=== PATIENT | female | born 1945 | race Caucasian/White ===

== ENCOUNTER 2019-10-12 10:28 | Outpatient (CLI) | payer MEDICARE, SELFPAY ==
--- NOTE | ~2019-10-12 | MM_ITS ---
EXAMINATION: MM screening ryan BI w yrn HISTORY: Screening TECHNIQUE: Craniocaudal and mediolateral oblique 3-D tomosynthesis images were obtained and synthetic 2-D images were generated. CAD analysis was submitted and interpreted. COMPARISON: Comparison to multiple prior studies sequentially, with oldest reviewed study dated 03/2014. BREAST PARENCHYMAL COMPOSITION: There are scattered areas of fibroglandular density. FINDINGS: There is no evidence of suspicious mass, calcification, or architectural distortion to sugg est malignancy in either breast. There has been no suspicious interval change. IMPRESSION: 1. No mammographic evidence of malignancy. 2. Recommend routine screening mammography in one year. BI-RADS Category 1: Negative Reviewed, dictated and finalized at location A.
== END 2019-10-12 10:29 | disposition home or self-care (01) ==
PROVIDERS: PCP Family Medicine; Visit Provider Family Medicine
DX: Z12.31 Encounter for screening mammogram for malignant neoplasm of breast (principal)
CPT/HCPCS: 77063; 77067

== ENCOUNTER 2020-09-04 10:34 | Outpatient (CLI) | payer MEDICARE, SELFPAY ==
--- NOTE | ~2020-09-04 | XR_ITS ---
EXAMINATION: XR wrist LT w scaphoid DATE: 09/04/2020 11:00 INDICATION: Radial sided left hand/wrist pain. TECHNIQUE: Posteroanterior, ulnar deviation, oblique, and lateral views of the left wrist were obtain ed. COMPARISON: none FINDINGS: Alignment is normal. No fracture. Subarticular lucencies with thin sclerotic margins likely represent ing degenerative subchondral cysts are seen at both sides of the first carpal metacarpal joint where there is wall to moderate joint space narrowing and at both sides of the radiolunate articulation wit h the joint space is relatively preserved. Additional mild joint space narrowing at the triscaphe patti nt. Remaining joint spaces are normal. Soft tissues are unremarkable. IMPRESSION: 1. 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 Reviewed, dictated and finalized at location A. IMPRESSION: 1. 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
== END 2020-09-04 10:35 | disposition home or self-care (01) ==
PROVIDERS: PCP Family Medicine; Visit Provider Physician Assistant
DX: M79.642 Pain in left hand (principal); M79.645 Pain in left finger(s); M19.042 Primary osteoarthritis, left hand
CPT/HCPCS: 73110

== ENCOUNTER 2020-09-07 00:37 | Day surgery (SDC) | payer MEDICARE, SELFPAY ==
[2020-08-31 11:05] VITALS: BMI 33.3
[2020-09-07 10:33] VITALS: BP 138/59; PULSE 74; RESP 18; TEMP 36.3; O2SAT 97; BMI 31.4
[2020-09-07] MEDS: LACTATED RINGERS 1,000 ML 30 ML IV CONT (10:47)
--- NOTE | 2020-09-07 10:49 | WPDANESEPPF ---
Anes - Initial Pre Proc Eval Procedure: Operation Date: 09/07/20 10:30 Proposed Procedures p Screening Colonoscopy - Orlin Vitale MD Date/Time: 09/07/20 10:49 Surgeon: Orlin Vitale MD Pre Op Diagnosis: hx of colon polyps Patient Data Age: 75 Gender: F Height: 1.55 m Weight: 75.5 kg Last Vital Signs Temp 36.3 C L 09/07/20 10:33 Pulse 74 09/07/20 10:33 Resp 18 09/07/20 10:33 BP 138/59 L 09/07/20 10:33 Pulse Ox 97 09/07/20 10:33 Allergies Allergy/AdvReac Type Severity Reaction Status Date / Time AMIE Inhibitors AdvReac Unknown Unknown Verified 09/07/20 10:18 fenofibrate AdvReac Unknown myalgia Verified 09/07/20 10:18 Bdccnis-Pds-Afw Reductase AdvReac Unknown Unknown Verified 09/07/20 10:18 Inhibitor Home Medications Medication Instructions Recorded Confirmed Type psyllium husk 0.52 gram capsule 0.52 gm PO BID cap 01/25/19 09/07/20 History turmeric root extract 500 mg 500 mg PO DAILY 01/25/19 09/07/20 History capsule ascorbic acid (vitamin C) 1,000 mg 1 g PO DAILY 01/24/20 09/07/20 History tablet cholecalciferol (vitamin D3) 25 25 mcg PO TID cap 08/28/20 09/07/20 History mcg (1,000 unit) capsule famotidine 20 mg tablet 20 mg PO QHS 08/28/20 09/07/20 History omega-3 fatty acids 1,000 mg 1,000 mg PO DAILY 08/28/20 09/07/20 History capsule Patient hx anesthesia problems: none Family hx anesthesia problems: none PMFSH Past Medical History Medical History Borderline diabetes mellitus Complex sleep apnea syndrome History of tobacco abuse Hyperlipidemia Hypertension Family History Family History Father Family history of malignant neoplasm of stomach Patient's father is Family history of throat cancer Mother Family history of lung cancer Patient's mother is Family history of malignant neoplasm of brain Sibling Diabetes mellitus Family history of blood dyscrasia Other Family history of alcoholism Social History Social History Social History: Smoking packs per day: 1 Smoking cigarettes per day: 20.0 Years smoked: 20 Smoking pack-years: 20.00 Smoking status: Former smoker Tobacco type: cigarettes Second hand tobacco smoke exposure: No Smoking end date: 02/10/99 Alcohol intake: never Substance use: never Substance use type: does not use Living arrangements: with family Gender identity (if verbalized by the patient): Female Spiritual care concerns: No Anes - Eval Final PreProcedure Day of Procedure 09/07/20 10:49 Patient weight: obese Heart: regular rate and rhythm Lungs: clear to auscultation Airway: Mallampati scale class II Neurological: alert and oriented Last oral intake: >/= 8 hours ASA classification: III Emergent: no Anesthetic plan: proceed Anesthesia type and monitoring: general GIVS and standard monitoring Informed Consent: The patient's anesthetic plan and its attendant risks and benefits were discussed with the patient/family/POA. Questions were solicited and answers provided to the satisfaction of the patient/family/POA.
[2020-09-07 11:36] VITALS: BP 105/51; PULSE 72; RESP 18; O2SAT 93
[2020-09-07 11:46] VITALS: BP 121/66; PULSE 68; RESP 19; O2SAT 97
[2020-09-07 11:56] VITALS: BP 121/60; PULSE 66; RESP 14; O2SAT 95
--- NOTE | 2020-09-12 16:20 | P.HP_ITS ---
History of Present Illness History of Present Illness Consent: Risks, benefits, and alternatives have been discussed and questions answered. Patient agrees to proceed with procedure. Chief complaint: hx of colon polyps Narrative: Marychuy Spain is a 75 year old female who has a history of colon polyps. She is here for colon cancer screening Review of Systems Review of Systems: All systems reviewed & are unremarkable except as noted in HPI and below PMFSH Past Medical History Medical History Borderline diabetes mellitus Complex sleep apnea syndrome History of tobacco abuse Hyperlipidemia Hypertension Family History Family History Father Family history of malignant neoplasm of stomach Patient's father is Family history of throat cancer Mother Family history of lung cancer Patient's mother is Family history of malignant neoplasm of brain Sibling Diabetes mellitus Family history of blood dyscrasia Other Family history of alcoholism Social History Social History Social History: Smoking packs per day: 1 Smoking cigarettes per day: 20.0 Years smoked: 20 Smoking pack-years: 20.00 Smoking status: Former smoker Tobacco type: cigarettes Second hand tobacco smoke exposure: No Smoking end date: 02/10/99 Alcohol intake: never Substance use: never Substance use type: does not use Living arrangements: with family Gender identity (if verbalized by the patient): Female Spiritual care concerns: No Meds Home Medications and Allergies Home Medications Medication Instructions Recorded Confirmed Type psyllium husk 0.52 gram capsule 0.52 gm PO BID cap 01/25/19 09/07/20 History turmeric root extract 500 mg 500 mg PO DAILY 01/25/19 09/07/20 History capsule ascorbic acid (vitamin C) 1,000 mg 1 g PO DAILY 01/24/20 09/07/20 History tablet cholecalciferol (vitamin D3) 25 25 mcg PO TID cap 08/28/20 09/07/20 History mcg (1,000 unit) capsule famotidine 20 mg tablet 20 mg PO QHS 08/28/20 09/07/20 History omega-3 fatty acids 1,000 mg 1,000 mg PO DAILY 08/28/20 09/07/20 History capsule Allergies Allergy/AdvReac Type Severity Reaction Status Date / Time AMIE Inhibitors AdvReac Unknown Unknown Verified 09/07/20 10:18 fenofibrate AdvReac Unknown myalgia Verified 09/07/20 10:18 Zryxjcn-Zlz-Ydb Reductase AdvReac Unknown Unknown Verified 09/07/20 10:18 Inhibitor Exam Resp: Auscultation: clear to auscultation bilaterally Cardio: Rate: regular rate Rhythm: regular rhythm GI: GI Palp: Yes Soft to palpation and No Tenderness to palpation present (GI) Assessment and Plan Assessment and plan (1) Colon cancer screening: Code(s): Z12.11 - Encounter for screening for malignant neoplasm of colon Status: Acute Assessment and Plan: Colonoscopy with possible biopsy or polypectomy or cautery or injection of dawn bstances.
== END 2020-09-07 12:05 | disposition home or self-care (01) ==
PROVIDERS: PCP Family Medicine; Visit Provider Internal Medicine Gastroenterology
PROC: 0DJD8ZZ Inspection of Lower Intestinal Tract, Via Natural or Artificial Opening Endoscopic (ICD-10-PCS; CPT 45378; principal; 2020-09-07 10:30)
DX: Z12.11 Encounter for screening for malignant neoplasm of colon (principal); K57.30 Diverticulosis of large intestine without perforation or abscess without bleeding; K64.8 Other hemorrhoids; K62.1 Rectal polyp; R73.03 Prediabetes; G47.39 Other sleep apnea; I10 Essential (primary) hypertension; E78.5 Hyperlipidemia, unspecified; Z87.891 Personal history of nicotine dependence; E66.9 Obesity, unspecified; Z68.31 Body mass index [BMI] 31.0-31.9, adult
CPT/HCPCS: 45380; 88305; J7120

== ENCOUNTER 2020-10-17 09:29 | Outpatient (CLI) | payer MEDICARE, SELFPAY ==
--- NOTE | ~2020-10-17 | MM_ITS ---
EXAMINATION: MM screening ryan BI w yrn HISTORY: Screening mammogram TECHNIQUE: Craniocaudal and mediolateral oblique 3-D tomosynthesis images were obtained and synthetic 2-D images were generated. CAD analysis was submitted and interpreted. COMPARISON: 10/12/2019, 09/18/2018, 08/20/2017 bilateral digital screening mammogram examinations BREAST PARENCHYMAL COMPOSITION: There are scattered areas of fibroglandular density. FINDINGS: There is a biopsy marker on the left; history of prior benign left breast biopsy. There are scattered bilateral benign calcifications. There is no evidence of suspicious mass, calcification, o r architectural distortion to suggest malignancy in either breast. There has been no suspicious inter haily change. IMPRESSION: 1. No mammographic evidence of malignancy. 2. Recommend routine screening mammography in one year. BI-RADS Category 2: Benign finding(s). Reviewed, dictated and finalized at location A.
--- NOTE | ~2020-10-17 | DEXA_ITS ---
Bone Density Report Name: Marychuy Spain Age: 75 Sex: Female Ethnicity: White Date of : 1945 Indication: postmenopausal; hysterectomy; Referring Provider: Jennifer Gomez Study: Bone densitometry was performed. Exam Date: October 17, 2020 Accession number: [id number] Bone Density: Region BMD T-score Z-score Classification AP Spine (L1, L2, L3) 0.839 -1.6 0.7 Osteopenia Femoral Neck (Left) 0.949 0.9 2.9 Normal Total Hip (Left) 1.096 1.3 3.0 Normal Total Hip Bilateral Avg 1.044 0.9 2.5 Normal Femoral Neck (Right) 0.784 -0.6 1.5 Normal Total Hip (Right) 0.991 0.4 2.1 Normal World Health Organization criteria for BMD impression classify patients as: Normal (T-score at or above -1.0), Osteopenia (T-score between -1.0 and -2.5), or Osteoporosis (T-score at or below -2.5). 10-year Fracture Risk(1): Major Osteoporotic Fracture 8.2% Hip Fracture 0.9% Reported Risk Factors: [place] (), Neck BMD=0.784, BMI=32.9 (1) FRAX(R) Version 3.08. Fracture probability calculated for an untreated patient. Fracture probability may be lower if the patient has received treatment. Clinical Information Provided by Patient: Has used the following medications: Vitamin D Has the following medical conditions: Hysterectomy Patient maximum height was 61 Menopause Age: 51 Drinks caffeinated beverages Onset of menses at age 15 Number of children 1 Impression: The patient has low bone mass, based on the Total Spine T-score. The patient has an estimated ten-year risk of hip fracture of 0.9% and an estimated ten-year risk of major fracture of 8.2%, based on the WHO FRAX algorithm. Discussion: BONE DENSITY IS LOW AT ONE OR MORE SKELETAL SITES. This patient's lowest T-score is low at one or more skeletal sites. It meets the World Health Organization's (WHO) criteria for ?low bone mass? (T-score between -1.0 and -2.5). The patient's 10-year risk of fracture as calculated by FRAX is less than the threshold where pharmacological therapy is recommended by the National Osteoporosis Foundation (NOF). However, all treatment decisions require clinical judgment and consideration of individual patient factors, including patient preferences, comorbidities, previous drug use, risk factors not captured in the FRAX model (e.g., frailty, falls, vitamin D deficiency, increased bone turnover, interval significant decline in bone density) and possible under or overestimation of fracture risk by FRAX. The patient should follow a healthful lifestyle (good nutrition with adequate calcium and vitamin D, and appropriate weight-bearing exercise). Follow-Up: Consider repeating this study in 2 to 3 years to reassess this patient's status, or sooner if there is some new clinical indication. Reported by: HERNAN on 10/17/2020 11:28:00 AM
== END 2020-10-17 09:30 | disposition home or self-care (01) ==
PROVIDERS: PCP Family Medicine; Visit Provider Obstetrics & Gynecology
DX: Z12.31 Encounter for screening mammogram for malignant neoplasm of breast (principal); Z78.0 Asymptomatic menopausal state
CPT/HCPCS: 77063; 77067; 77080

== ENCOUNTER → 2020-12-08 02:41 | Outpatient (CLI) | payer MEDICARE, SELFPAY ==
[2020-12-08 17:01] LABS: SARS-CoV-2 RNA PCR Negative
== END ==
PROVIDERS: Physician Assistant; PCP Family Medicine; Visit Provider Family Medicine
DX: R68.89 Other general symptoms and signs (principal); Z20.822 Contact with and (suspected) exposure to COVID-19
CPT/HCPCS: C9803; U0003; U0005

== ENCOUNTER 2021-01-27 13:39 | Emergency (ER) | payer MEDICARE, SELFPAY ==
[2021-01-27] VITALS (7 sets, daily range): BP systolic 159–187; BP diastolic 72–90; PULSE 73–87; RESP 12–18; TEMP 36.3; O2SAT 97–100
--- NOTE | ~2021-01-27 | XR_ITS ---
EXAMINATION: XR chest 2V 01/27/2021 20:14 INDICATION: Shortness of breath. Diabetes. PROCEDURE: 2 view chest COMPARISON: 07/12/2013 FINDINGS: The lungs are clear. The cardiomediastinal silhouette is within normal limits. There are no pleural effusions. There is no pneumothorax suspected. IMPRESSION: 1: NO ACUTE CARDIOPULMONARY DISEASE. Reviewed, dictated and finalized at location A. E ANIMAL VETERINARIAN
--- NOTE | 2021-01-27 19:49 | PC.NURSE ---
Pt presents with ems c/o anxiety and shortness of breath x 9 days. sats 100% on RA. appears anxious. c/o I can't take a deep breath . resps normal, regular, even, nonlabored. lungs clear to auscultation.skin pwd.
--- NOTE | 2021-01-27 20:06 | ED.GENADULT ---
HPI - General Adult General Chief complaint: Shortness of Breath/Dyspnea Stated complaint: SOB Time Seen by Provider: 01/27/21 19:34 History of Present Illness HPI narrative: 75-year-old female presents the [facility] for evaluation of persistent shortness of breath and anxiety. Patient has had multiple evaluations by both her revolving inventory clerk and her primary care physician over the last few days regarding anxiety and blood pressure. Patient was started on Norvasc by her revolving inventory clerk but patient took the medication 1 time and stopped taking it due to adverse effects dizziness and lightheadedness. Patient did have follow-up with her primary care physician and was started on Buspirone and took the medication once. Related Data Home Medications Medication Instructions Recorded Confirmed psyllium husk 0.52 gram capsule 0.52 gm PO BID cap 01/25/19 01/22/21 turmeric root extract 500 mg 500 mg PO DAILY 01/25/19 01/22/21 capsule ascorbic acid (vitamin C) 1,000 mg 1 g PO DAILY 01/24/20 01/22/21 tablet cholecalciferol (vitamin D3) 25 25 mcg PO TID cap 08/28/20 01/22/21 mcg (1,000 unit) capsule famotidine 20 mg tablet 20 mg PO QHS 08/28/20 01/22/21 omega-3 fatty acids 1,000 mg 1,000 mg PO DAILY 08/28/20 01/22/21 capsule calcium carbonate 600 mg-vitamin cap PO 11/28/20 01/22/21 D3 12.5 mcg (500 unit) capsule Allergies Allergy/AdvReac Type Severity Reaction Status Date / Time AMIE Inhibitors AdvReac Unknown Unknown Verified 01/26/21 13:12 fenofibrate AdvReac Unknown myalgia Verified 01/26/21 13:12 Ixitedb-NJD-HgS Reductase AdvReac Unknown Unknown Verified 01/26/21 13:12 Inhibitor [Vzcejtb-Dph-Qzh Reductase Inhibitor] Review of Systems Review of Systems: CONSTITUTIONAL: Denies fever, chills, or sweats. EYES: Denies visual changes, redness, or discharge. ENT: Denies rhinorrhea, congestion, sore throat, or otalgia. CARDIOVASCULAR: Denies chest pain, palpitations, or edema. RESPIRATORY: Denies cough or dyspnea. GASTROINTESTINAL: Denies abdominal pain, nausea, vomiting, or diarrhea. GENITOURINARY: Denies dysuria or hematuria. SKIN: Denies rash or itching. MUSCULOSKELETAL: Denies back pain, joint pain, or myalgia. NEUROLOGIC: Denies headache, numbness, or weakness. PSYCHIATRIC: anxiety PMFSH Past Medical History Medical History Borderline diabetes mellitus Complex sleep apnea syndrome History of tobacco abuse Hyperlipidemia Hypertension Family History Family History Father Family history of malignant neoplasm of stomach Patient's father is Family history of throat cancer Mother Family history of lung cancer Patient's mother is Family history of malignant neoplasm of brain Sibling Diabetes mellitus Family history of blood dyscrasia Other Family history of alcoholism Social History Social History (Updated 01/26/21 @ 13:13 by Yany Frost) Social History: Smoking packs per day: 1 Smoking cigarettes per day: 20.0 Years smoked: 20 Smoking pack-years: 20.00 Smoking status: Former smoker Tobacco type: cigarettes Second hand tobacco smoke exposure: No Smoking end date: 02/10/99 Alcohol intake: never Substance use: never Substance use type: does not use Additional living arrangements comments: Pt son and granddaughter live with her. Gender identity (if verbalized by the patient): Female Sexual Orientation (if Verbalized by the Patient): Straight or Heterosexual Spiritual care concerns: No Exam Narrative: APPEARANCE: Well appearing, no pain in distress, well-nourished. Head normocephalic atraumatic. EYES: PERRLA/EOMI, conjunctivae very clear. NECK: Supple. No adenopathy, no masses. RESPIRATORY: Airway patent, respirations nonlabored. Clear to auscultation bilaterally, no rales, rhonchi, wheezing. CARDIOVASCUL
[2021-01-29 19:40] LABS: SARS-CoV-2 RNA PCR Negative
== END 2021-01-27 21:20 | disposition home or self-care (01) ==
PROVIDERS: Emergency Provider Emergency Medicine; PCP Family Medicine
DX: R06.00 Dyspnea, unspecified (principal); Z20.822 Contact with and (suspected) exposure to COVID-19; R73.03 Prediabetes; G47.39 Other sleep apnea; E78.5 Hyperlipidemia, unspecified; I10 Essential (primary) hypertension; Z87.891 Personal history of nicotine dependence
CPT/HCPCS: 71046; 99283; C9803; U0003; U0005

== ENCOUNTER 2021-02-04 12:17 | Outpatient (CLI) | payer MEDICARE, SELFPAY ==
--- NOTE | ~2021-02-04 | MR_ITS ---
EXAMINATION: MR brain/brain stem wo con DATE: 02/04/2021 13:47 INDICATION: Disorientation, unspecified. Confusion. Left eye pain. TECHNIQUE: Magnetic resonance imaging (MRI) of the brain and brainstem was performed without intraven ous contrast. Sequences included sagittal and axial T1-weighted FSE, axial diffusion-weighted FS EPI, axial T2*-weighted GRE, axial T2-weighted FLAIR Propeller, axial T2-weighted Propeller, small field- of-view coronal FIESTA, small sahgp-gb-berl coronal T1-weighted FSE, and small figwy-oj-olcp axial T1 -weighted SPGR. Apparent diffusion coefficient (ADC) maps were created. COMPARISON: None. FINDINGS: There is no intracranial hemorrhage, acute infarction, or abnormal intracranial mass lesion . There are scattered areas of nonspecific increased T2-weighted signal intensity in the cerebral whi te matter, which is within normal limits for the patient's age. The ventricles are normal in size. Th e internal auditory canals and inner and middle ears are normal. The mastoid air cells are normal. Th e cisternal segments of the trigeminal nerves are normal. There is a mucous retention cyst in left ma xillary sinus. There are likely changes of ocular lens replacement surgeries. IMPRESSION: 1. Normal aging brain. Reviewed, dictated and finalized at location A. APPLICATION SUPPORT ANALYST IMPRESSION: 1. Normal aging brain.
== END 2021-02-04 12:18 | disposition home or self-care (01) ==
LOC: ANHIMG 12:23
PROVIDERS: PCP Family Medicine; Visit Provider Nurse Practitioner Gerontology
DX: R41.0 Disorientation, unspecified (principal)
CPT/HCPCS: 70551

== ENCOUNTER 2021-02-07 13:18 | Outpatient (CLI) | payer MEDICARE, SELFPAY ==
--- NOTE | 2021-02-07 13:52 | ECHO_ITS ---
Patient Info Name: Marychuy Spain Age: 75 years : 1945 Gender: Female Ht: 61 in Wt: 175 lbs BSA: 1.88 m2 HR: 63 bpm BP: 128 / 67 mmHg Technical Quality: Good Exam Date: 02/07/2021 2:03 PM Exam Location: [facility] Patient Status: Outpatient Admit Date: 02/07/2021 Staff Ordering Physician: Ranjith Adler DO Manager Medical Device: Radha qOuendo RDCS Attending Provider: Ranjith Adler DO Referring Physician: Vitor ADAMS; Exam Type: CA echo doppler color flow Study Info Indications R06.00 - Dyspnea, unspecified Complete two-dimensional, color flow and Doppler transthoracic echocardiogram is performed. Summary 1. Complete two-dimensional, color flow and Doppler transthoracic echocardiogram is performed. 2. Left ventricular chamber dimension is normal. 3. Left ventricular systolic function is normal, estimated at 60-65%. 4. The left ventricular diastolic function is grade II diastolic dysfunction. 5. E/e' 14 is mildly elevated. 6. There is trace aortic valve regurgitation. 7. No pulmonary hypertension, estimated pulmonary arterial systolic pressure is 28 mmHg. Left Ventricle E/e' 14 is mildly elevated. Left ventricular chamber dimension is normal. Left ventricular systolic function is normal, estimated at 60-65%. The left ventricular diastolic function is grade II diastolic dysfunction. Right Ventricle Right ventricular chamber dimension is normal. Right ventricular systolic function is normal. Aortic Valve The aortic valve is trileaflet. There is no aortic valve stenosis. There is trace aortic valve regurgitation. Pulmonic Valve There is no pulmonic regurgitation. Mitral Valve There is no mitral valve stenosis. There is no mitral valve regurgitation. Tricuspid Valve There is no tricuspid valve regurgitation. No pulmonary hypertension, estimated pulmonary arterial systolic pressure is 28 mmHg. Pericardium/Pleural There is no pericardial effusion. Inferior Vena Cava Normal inferior vena cava with >50% collapse upon inspiration consistent with normal right atrial pressure, 5 mmHg. Aorta The aortic root size at the sinus of Valsalva is normal. Left Ventricular Outflow Tract Name Value Normal LVOT 2D LVOT Diameter 2.0 cm LVOT Doppler LVOT Peak Gradient 5 mmHg LVOT Mean Gradient 3 mmHg LVOT VTI 24 cm LVOT VTI/AV VTI Ratio 1.0 LVOT Stroke Volume 77 ml LVOT CO 14.6 l/min LVOT CI 7.7 l/min/m2 Pulmonic Valve Name Value Normal PV Doppler PV Peak Gradient 2 mmHg Mitral Valve Name Value No
== END 2021-02-07 13:19 | disposition home or self-care (01) ==
PROVIDERS: PCP Family Medicine; Visit Provider Internal Medicine Cardiovascular Disease
DX: R06.00 Dyspnea, unspecified (principal)
CPT/HCPCS: C8929

== ENCOUNTER 2021-10-03 14:34 | Outpatient (CLI) | payer MEDICARE, SELFPAY ==
--- NOTE | ~2021-10-03 | XR_ITS ---
EXAM: XR hip LT min 2V DATE: 10/03/2021 14:59 HISTORY: PAIN X2-4 WKS, NO INJURY . COMPARISON: 07/27/2012. FINDINGS: Normal mineralization. No fracture or dislocation. No lytic or blastic lesion. Superior le ft hip joint space narrowing. No erosion or periosteal change. Soft tissues within normal limits. IMPRESSION: Mild left hip osteoarthritis. Reviewed, dictated and finalized at location K.
== END 2021-10-03 14:35 | disposition home or self-care (01) ==
PROVIDERS: PCP Family Medicine; Visit Provider Nurse Practitioner Gerontology
DX: M25.552 Pain in left hip (principal); M16.12 Unilateral primary osteoarthritis, left hip
CPT/HCPCS: 73502

== ENCOUNTER 2021-11-10 08:09 | Outpatient (CLI) | payer MEDICARE, SELFPAY ==
--- NOTE | ~2021-11-10 | MM_ITS ---
EXAMINATION: MM screening [facility] BI w yrn HISTORY: Screening mammogram TECHNIQUE: Craniocaudal and mediolateral oblique 3-D tomosynthesis images were obtained and synthetic 2-D images were generated. CAD analysis was submitted and interpreted. COMPARISON: 10/17/2020, 10/12/2019, 09/18/2018 BREAST PARENCHYMAL COMPOSITION: There are scattered areas of fibroglandular density. FINDINGS: There is no suspicious mass, calcification, or architectural distortion to suggest malignan cy in either breast. There has been no suspicious interval change. IMPRESSION: 1. No mammographic evidence of malignancy. 2. Recommend routine screening mammography in one year. BI-RADS Category 1: Negative Reviewed, dictated and finalized at location A.
== END 2021-11-10 08:10 | disposition home or self-care (01) ==
PROVIDERS: PCP Family Medicine; Visit Provider Obstetrics & Gynecology
DX: Z12.31 Encounter for screening mammogram for malignant neoplasm of breast (principal)
CPT/HCPCS: 77063; 77067

== ENCOUNTER 2022-04-01 13:25 | Outpatient (CLI) | payer MEDICARE, SELFPAY ==
[2022-04-01 14:56] LABS: D Dimer 0.82 ug/mL (<0.48)
== END 2022-04-01 13:26 | disposition home or self-care (01) ==
PROVIDERS: PCP Family Medicine; Visit Provider Internal Medicine Cardiovascular Disease
DX: R06.00 Dyspnea, unspecified (principal)
CPT/HCPCS: 36415; 85380

== ENCOUNTER 2022-04-09 14:19 | Outpatient (CLI) | payer MEDICARE, SELFPAY ==
--- NOTE | ~2022-04-09 | CT_ITS ---
EXAMINATION: CTA chest DATE: 04/09/2022 15:23 INDICATION: Dyspnea. TECHNIQUE: Computed tomographic angiography (CTA) of the chest was performed with 100 mL Omnipaque-35 0 intravenous contrast. Automated exposure control and iterative reconstruction technique were employ ed. The dose-length product was 337.56 mGy-cm. Maximum intensity projection 3D-reconstructions of the aorta and other arteries were constructed by the technologist on a separate workstation. COMPARISON: None. FINDINGS: The lungs demonstrate mild atelectasis. No pleural effusion. The aorta is normal in caliber . No aneurysm or dissection. There is mild aortic atherosclerosis. There is no pulmonary embolus. The re is a small sliding hiatal hernia. There are cysts in the liver measuring up to 5.3 cm. 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 There is severe thoracic spondylosis. IMPRESSION: 1. No pulmonary embolus. 2. Mild aortic atherosclerosis. No aneurysm or dissection. Reviewed, dictated and finalized at location A. OARDER
[2022-04-09 15:16] LABS: Estimated Glomerular Filt Rate > 60
== END 2022-04-09 14:20 | disposition home or self-care (01) ==
PROVIDERS: PCP Family Medicine; Visit Provider Internal Medicine Cardiovascular Disease
DX: R06.00 Dyspnea, unspecified (principal); I70.0 Atherosclerosis of aorta
CPT/HCPCS: 71275; Q9967

== ENCOUNTER 2022-09-20 15:15 | Outpatient (CLI) | payer MEDICARE, SELFPAY ==
--- NOTE | ~2022-09-20 | XR_ITS ---
EXAMINATION: XR lumbar spine min 4V DATE: 09/20/2022 15:49 INDICATION: Left-sided sciatica. TECHNIQUE: 5 views of lumbar spine were obtained. COMPARISON: Lumbar spine radiograph 07/30/16, CT 05/11/2018 FINDINGS: Bone alignment is normal. Vertebral body heights are normal. There is moderately decreased disc height at L2-L3 and mildly decreased disc height at L3-L4 and L5-S1. There is multilevel facet j oint osteoarthritis, severe bilaterally at L4-5 and L5-S1. IMPRESSION: 1. Moderate lumbar spondylosis. Reviewed, dictated and finalized at location E.
== END 2022-09-20 15:16 | disposition home or self-care (01) ==
PROVIDERS: PCP Family Medicine; Visit Provider Family Medicine
DX: M54.32 Sciatica, left side (principal); M43.06 Spondylolysis, lumbar region
CPT/HCPCS: 72110

== ENCOUNTER 2022-11-18 15:00 | Outpatient (CLI) | payer MEDICARE, SELFPAY ==
--- NOTE | ~2022-11-18 | XR_ITS ---
EXAMINATION: XR chest 2V 11/18/2022 15:19 INDICATION: Shortness of breath PROCEDURE: 2 view chest COMPARISON: Comparison to multiple prior studies sequentially, with oldest reviewed study dated 11/11. FINDINGS: The lungs are clear. The cardiomediastinal silhouette is within normal limits. There are no pleural effusions. There is no pneumothorax suspected. IMPRESSION: 1: NO ACUTE CARDIOPULMONARY DISEASE. Reviewed, dictated and finalized at location B.
== END 2022-11-18 15:01 | disposition home or self-care (01) ==
PROVIDERS: PCP Family Medicine; Visit Provider Internal Medicine Cardiovascular Disease
DX: R06.02 Shortness of breath (principal)
CPT/HCPCS: 71046

== ENCOUNTER 2023-04-03 14:41 | Outpatient (CLI) | payer MEDICARE, SELFPAY ==
--- NOTE | ~2023-04-03 | DEXA_ITS ---
Bone Density Report Name: JAYA SMALL Age: 77 Sex: Female Ethnicity: White Date of : 1945 Indication: postmenopausal; screening for osteoporosis; height loss; hysterectomy; Referring Provider: MURRAY LONG Study: Bone densitometry was performed. Exam Date: April 03, 2023 Accession number: [id number] Bone Density: Region BMD T-score Z-score Classification AP Spine(L1-L4) 1.016 -0.3 2.2 Normal Femoral Neck (Left) 0.756 -0.8 1.3 Normal Total Hip (Left) 1.025 0.7 2.6 Normal Femoral Neck (Right) 0.787 -0.6 1.6 Normal Total Hip (Right) 0.979 0.3 2.2 Normal Total Hip Mean 1.002 0.5 2.4 Normal World Health Organization criteria for BMD impression classify patients as: Normal (T-score at or above -1.0), Osteopenia (T-score between -1.0 and -2.5), or Osteoporosis (T-score at or below -2.5). 10-year Fracture Risk: FRAX not reported because: All T-scores for Spine Total, Hip Total, Femoral Neck at or above -1.0 Previous Exams: Region Exam Age BMD T-score BMD Change BMD Change Date g/cm2 vs Baseline vs Previous Total Hip(Left) 04/03/2023 77 1.025 0.7 -0.071 (-6.5%) -0.071 (-6.5%) 10/17/2020 75 1.096 1.3 Total Hip(Right) 04/03/2023 77 0.979 0.3 -0.011 (-1.1%) -0.011 (-1.1%) 10/17/2020 75 0.991 0.4 *Denotes significance at 95% confidence level, LSC for Total Hip = 0.027 g/cm2 # Denotes dissimilar scan types or analysis methods Clinical Information Provided by Patient: Has the following medical conditions: Hysterectomy Patient maximum height was 61 Menopause Age: 51 No regular weight bearing exercise Drinks caffeinated beverages Onset of menses at age 15 Number of children 1 Impression: The patient has normal bone mass. No significant bone loss was observed. Discussion: BONE DENSITY IS ABOVE THE MINIMUM DESIRABLE LEVEL AT ALL SKELETAL SITES TESTED. This patient?s bone mineral density is above the minimum desirable level (T-score -1.0 or better) at all sites measured. The patient should follow a healthful lifestyle (good nutrition with adequate calcium and vitamin D, and appropriate weight-bearing exercise). Follow-Up: Consider repeating this study in 5 years or sooner if there is some new clinical indication. Reported by: ADAM on 04/03/2023 3:15:00 PM. Reviewed, dictated and finalized at location ASilvestre RAINES
--- NOTE | ~2023-04-03 | MM_ITS ---
EXAMINATION: MM screening ryan BI w yrn HISTORY: Screening TECHNIQUE: Craniocaudal and mediolateral oblique 3-D tomosynthesis images were obtained and synthetic 2-D images were generated. CAD analysis was submitted and interpreted. COMPARISON: Comparison to multiple prior studies sequentially, with oldest reviewed study dated 10/2016. BREAST PARENCHYMAL COMPOSITION: Not dense: There are scattered areas of fibroglandular density. FINDINGS: There is no evidence of suspicious mass, calcification, or architectural distortion to sugg est malignancy in either breast. There has been no suspicious interval change. IMPRESSION: 1. No mammographic evidence of malignancy. 2. Recommend routine screening mammography in one year. BI-RADS Category 1: Negative Reviewed, dictated and finalized at location A. RIENCE DESIGNER
== END 2023-04-03 14:42 | disposition home or self-care (01) ==
PROVIDERS: PCP Family Medicine; Visit Provider Physician Assistant
DX: Z12.31 Encounter for screening mammogram for malignant neoplasm of breast (principal); Z78.0 Asymptomatic menopausal state
CPT/HCPCS: 77063; 77067; 77080

== ENCOUNTER 2023-05-23 15:39 | Outpatient (CLI) | payer MEDICARE, SELFPAY ==
[2023-05-23 17:28] LABS: Vitamin D 25 Hydroxy 44.6 ng/mL
== END 2023-05-23 15:40 | disposition home or self-care (01) ==
LOC: ANHLAB 15:40
PROVIDERS: PCP Family Medicine; Visit Provider Internal Medicine Cardiovascular Disease
DX: Z79.899 Other long term (current) drug therapy (principal)
CPT/HCPCS: 36415; 82306

== ENCOUNTER 2023-10-23 07:13 | Outpatient (CLI) | payer MEDICARE, SELFPAY ==
[2023-10-23 07:54] LABS: Cholesterol 302 mg/dL (0-200); HDL Direct 70 mg/dL; Triglycerides 217 mg/dL (<150)
[2023-10-23 08:05] LABS: LDL Cholesterol Direct 169 mg/dL
== END 2023-10-23 07:14 | disposition home or self-care (01) ==
LOC: ANHLAB 07:17
PROVIDERS: PCP Family Medicine; Visit Provider Internal Medicine Cardiovascular Disease
DX: E78.5 Hyperlipidemia, unspecified (principal)
CPT/HCPCS: 36415; 80061

== ENCOUNTER 2023-11-14 09:32 | Outpatient (CLI) | payer MEDICARE, SELFPAY ==
--- NOTE | ~2023-11-14 | NM_ITS ---
EXAMINATION: NM giuliana stress w perfusion DATE: 11/14/2023 12:24 INDICATION: Chest pain TECHNIQUE: Rest images were obtained following intravenous administration of 10.3 mCi Tc99m tetrofosm in (Myoview). The patient was infused intravenously with Lexiscan (Regadenoson). Then, 33.6 mCi Tc99m tetrofosmin (Myoview) was administered intravenously, and stress images were obtained. Data was gene nstructed into short axis and horizontal and vertical long axis SPECT images. Gated SPECT images were also obtained. COMPARISON: None. FINDINGS: There is no definite reversible or fixed perfusion abnormality to suggest ischemia or infar ction. There is normal left ventricular chamber size, wall motion and ejection fraction. Left ventr icular ejection fraction measures >70%. IMPRESSION: 1. Normal myocardial perfusion at rest and during stress. 2. Left ventricular ejection fraction measuring >70%. Reviewed, dictated and finalized at location A.
--- NOTE | 2023-11-14 10:05 | EST_ITS ---
Patient Info Name: Marychuy Spain Age: 78 years : 1945 Gender: Female Ht: 60 in Wt: 173 lbs BSA: 1.86 m2 HR: 64 bpm BP: 161 / 87 mmHg Heart Rhythm: Sinus Rhythm Exam Date: 11/14/2023 10:48 AM Exam Location: [facility] Patient Status: Outpatient Admit Date: 11/14/2023 Staff Ordering Physician: Ranjith Adler DO Attending Provider: Ranjith Adler DO Exercise Technologist: Itzel Eid CT Exercise Physician: Ranjith Adler DO Exam Type: CA stress giuliana w NM Study Info Indications R07.89 - Other chest pain A regadenoson stress test was performed. Summary 1. 1. Negative lexiscan stress test for ischemic ST changes by ECG criteria. 2. 2. Baseline hypertension. 3. 3. Nuclear scan to follow and will be reported separately. Please correlate with it. 4. 4. Patient informed of the above results. Protocol: Lexiscan Stress ECG Details Stage: REST Duration (min): 3 min : 27 sec HR (bpm): 66 SBP (mmHg): 161 DBP (mmHg): 87 Stage: REST Duration (min): 7 min : 11 sec HR (bpm): 64 SBP (mmHg): 161 DBP (mmHg): 87 Stage: STAGE 1 Duration (min): 0 min : 59 sec HR (bpm): 85 SBP (mmHg): 169 DBP (mmHg): 61 Stage: RECOVERY Duration (min): 1 min : 0 sec HR (bpm): 95 SBP (mmHg): 169 DBP (mmHg): 61 Stage: RECOVERY Duration (min): 2 min : 0 sec HR (bpm): 97 SBP (mmHg): 169 DBP (mmHg): 61 Stage: RECOVERY Duration (min): 3 min : 0 sec HR (bpm): 89 SBP (mmHg): 169 DBP (mmHg): 61 Stage: RECOVERY Duration (min): 3 min : 16 sec HR (bpm): 93 SBP (mmHg): 163 DBP (mmHg): 69 Rest HR: 64 bpm Peak HR: 101 bpm Rest Sys BP: 161 mmHg Peak Sys BP: 169 mmHg Max Pred HR: 143 bpm % Max Pred HR: 71 % Target HR: 122 bpm Max RPP: 17,069 bpm*mmHg Termination Reason: Completed protocol Cardiac Symptoms: Shortness of breath Total Time: 1 min : 0 sec Rest Yan BP: 87 mmHg Peak Yan BP: 61 mmHg Total Dose: 0.4 mg Resting ECG Sinus rhythm, borderline T wave in ant/inf leads. Stress ECG No ST changes. Arrhythmias None. Report Signatures
== END 2023-11-14 09:33 | disposition home or self-care (01) ==
LOC: ANHCARD 09:33
PROVIDERS: PCP Family Medicine; Visit Provider Internal Medicine Cardiovascular Disease
DX: R07.89 Other chest pain (principal); I10 Essential (primary) hypertension
CPT/HCPCS: 78452; 93017; A9502; J2785

== ENCOUNTER 2024-04-01 07:12 | Outpatient (CLI) | payer MEDICARE, SELFPAY ==
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
--- OUTSIDE RECORDS SUMMARY | 2024-04-01 07:19 | XMS_ITS | Clinical Summary ---
Author Organization 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
--- OUTSIDE RECORDS SUMMARY | 2024-04-01 07:19 | XMS_ITS | Continuity of Care Document ---
Author Organization [facility] Address [address] [place] [address] [place] [address] Phone Care Team Providers Care Advisory Software Engineer Name Role Phone Walter Martinez Unavailable Unavailable Procedures Procedure Date Eye Exam & Treatment Refraction Eye Exam, New Patient Advance Directives Directive Yes / No Effective Date File Name No Information Encounters Encounter Description Practice Location Reason(s) For Visit Diagnoses Date Provider Providers Copied on Encounter Located within [facility], [address] [place] [address] [address], [place], [place], [id number], tel:[phone] [facility] No Information Apr-0 3-201 0 Krishnasamy Walter. [address], [facility], [place]. tel:[phone] Located within [facility], [address] [place] [address] [address], [place], [place], [id number], tel:[phone] [facility] No Information 0-200 8 Krishnasamy Walter. [address], [facility], [place]. tel:[phone] Family History Family Member Type Diagnosis Age At Onset No Information Payers Payer name Insurance type Covered constitution party ID Authoriza timaria m(s) [facility] CI [id number] Social History Type Description Quantity Date Captured Comments Sex Female Smoking Status No Information Chief Complaint And Reason For Visit No Information Reason For Referral Reason For Referral No Information History Of Present Illness Encounter Date Complaint History Of Prese nt Illness No Information Functional Status Date Functional Assessmen t No Information Instructions Date Instruction Additional Infor mation No Information Assessments Type Assessment Date No Information Patient Care Teams Name Effective Dates (start - stop) Status Members No Information
--- OUTSIDE RECORDS SUMMARY | 2024-04-01 07:19 | XMS_ITS | Patient Health Summary ---
Author Organization [facility] Address [address] [facility] [place] [address] Care Team Providers Care Mold Maker Name Role Phone Patricia Smith MD Primary Care Provider + Note from [facility],non-owned Affiliates and Associated Physician Practices is amultiple site organization consisting of ambulatory clinics and hospital sitesin [place], [place], [place] and [place]. This disclosure is being madepursuant to the Care Everywhere program and may not contain all information available regarding this patient. Last updated 17.[facility] Immunizations * INFLUENZA VACCINE, HIGH-DOSE, QUADR. (FLUZONE HIGH-DOSE QUADRIVALENT; 65Y+), 0.7 ML (HD-IIV4)(Given 12/29/2015) Social History Tobacco Use Types Packs/Day Years Used Date Smoking Tobacco: Never Assessed Sex and Gender Information Value Date Recorded Sex Assigned at Not on file Gender Identity Not on file Sexual Orientation Not on file Care Teams Mold Maker Relationship Specialty Start Date End Date Patricia Smith MD [address] [place] [address] PCP - General 09/18/20
--- OUTSIDE RECORDS SUMMARY | 2024-04-01 07:19 | XMS_ITS | Clinical Summary ---
Author Organization [facility] [employer] Address [address] [place] [address] Care Team Providers Care Pantograph Machine Operator Name Role Phone Patricia Smith MD Primary Care Provider + Source Comments [facility] [employer],non-owned Affiliates and Associated Physician Practices is amultiple site organization consisting of ambulatory clinics and hospital sitesin [place], [place], [place] and [place]. This disclosure is being madepursuant to the Care Everywhere program and may not contain all information available regarding this patient. Last updated 17.[facility] Immunizations Name Administration Dates Next Due INFLUENZA VACCINE, HIGH-DOSE , QUADR. (FLUZONE HIGH-DOSE QUADRIVALENT; 65Y+), 0.7 ML (HD-IIV4) 12/29/2015 Social History Tobacco Use Types Packs/Day Years Used Date Smoking Tobacco: Never Assessed Sex and Gender Information Value Date Recorded Sex Assigned at Not on file Gender Identity Not on file Sexual Orientation Not on file Plan of Treatment Health Maintenance Due Date Last Done Comments BONE DENSITY TESTING 1945 MEDICARE AWV 12 MONTHS 1945 HEPATITIS C SCREENING 08/03/1964 DTAP/TDAP/TD VACCINES (1 - Tdap) 1965 PNEUMOCOCCAL VACCINE 50+ (1 of 1 - PCV) 1996 ZOSTER VACCINE (1 of 2) 1996 Respiratory Syncytial Virus (RSV) Vaccine Pt: or over 60 yrs (1 - 1-dose 75+ series) 2021 COVID-19 VACCINE ( - 2023-2 5 season) 2023 INFLUENZA VACCINE (#1) 2023 12/29/2015 DEPRESSION SCREENING 02/11/2024 HEPATITIS B VACCINE Aged Out No longe r eligible based on patient's age to complete this topic HIB VACCINE Aged Out No longer eligi ble based on patient's age to complete this topic HPV VACCINE Aged Out No longer eligi ble based on patient's age to complete this topic MENINGOCOCCAL (Group B) VACCINE Aged Out No longer eligible based on patient's age to complete this topic MENINGOCOCCAL VACCINE Aged Out No sarah emanuel eligible based on patient's age to complete this topic Care Teams Pantograph Machine Operator Relationship Specialty Start Date End Date Patricia Smith MD [address] [place] [address] PCP - General 09/18/20
--- OUTSIDE RECORDS SUMMARY | 2024-04-01 07:19 | XMS_ITS | Continuity of Care Document ---
Author Organization [facility] Address [address] [place] [address] Phone Care Team Providers Care Product Examiner Name Role Phone Lois MS, OTR/L, EMERALDT, Ana Laura Unavailable Unavailable Procedures Procedure Date Therapeutic Exercise Neuromuscular Re-Ed Hot or Cold Pack Therapeutic Exercise Neuromuscular Re-Ed Hot or Cold Pack Therapeutic Exercise Neuromuscular Re-Ed Hot or Cold Pack OT Evaluation Low Complexity Therapeutic Exercise Neuromuscular Re-Ed Advance Directives Directive Yes / No Effective Date File Name No Information Encounters Encounter Description Practice Location Reason(s) For Visit Diagnoses Date Provider Providers Copied on Encounter [facility] [address] [address], [place], [place], [id number], tel:[phone] [place] Oth symptoms and signs involving the musculoskeletal systemParesthes ia of skinPain in left handLesion of ulnar nerve, left upper limb [address] [address] [facility] [address] [facility], [address], [place], [address], [place]. tel:[phone] Referring Provider: Yany Shay, [address] [place] [address] [address], [place], [address]. tel:[phone] [facility], [address] [address], [place], [place], [id number], tel:[phone] [place] Ot symptoms and signs involving the musculoskeletal systemParesthes ia of skinPain in left handLesion of ulnar nerve, left upper limb June-0 9 Birdrainervictor manuel Du[address] [place] [address], [address], [place], [facility], . tel:[phone] Referring Provider: Yany Shay, [facility] [address], [place], [address]. tel:[phone], [place], [place], [id number], tel:[phone] [place] Ot symptoms and signs involving the musculoskeletal systemParesthes ia of skinPain in left handLesion of ulnar nerve, left upper limb May-2 9 Wiliamamaliavictor manuel LittleAna Laura. [address] [place] [address], [address], [place], [facility], . tel:[phone] Referring Provider: Yany Shay, [facility] [address], [place], [address]. tel:[phone] [facility] [address] [place] [address], [place], [place], [id number], tel:[phone] [facility] symptoms and signs involving the musculoskeletal systemParesthes ia of skinPain in left handLesion of ulnar nerve, left upper limb May- 9 Claudette Moore. . Referring Provider: Yany Shay, [facility] [address], [place], [address]. tel:[phone] Family History Family Member Type Diagnosis Age At Onset No Information Payers Payer name Insurance type Covered constitution party ID Authorradua timaria m(s) [employer] [id number] Social History Type Description Quantity Date Captured [...]
--- OUTSIDE RECORDS SUMMARY | 2024-04-01 07:19 | XMS_ITS | Referral Summary ---
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
--- OUTSIDE RECORDS SUMMARY | 2024-04-01 07:19 | XMS_ITS | Referral Summary ---
Author Organization [facility] [employer] Address [address] [place] [address] Care Team Providers Care Cat Operator Name Role Phone Patricia Smith MD Primary Care Provider + Source Comments [facility],non-owned Affiliates and Associated Physician Practices is amultiple site organization consisting of ambulatory clinics and hospital sitesin [place], [place], [place] and [place]. This disclosure is being madepursuant to the Care Everywhere program and may not contain all information available regarding this patient. Last updated 17.[facility] [employer] Immunizations Name Administration Dates Next Due INFLUENZA VACCINE, HIGH-DOSE , QUADR. (FLUZONE HIGH-DOSE QUADRIVALENT; 65Y+), 0.7 ML (HD-IIV4) 12/29/2015 Social History Tobacco Use Types Packs/Day Years Used Date Smoking Tobacco: Never Assessed Sex and Gender Information Value Date Recorded Sex Assigned at Not on file Gender Identity Not on file Sexual Orientation Not on file Plan of Treatment Not on file Care Teams Cat Operator Relationship Specialty Start Date End Date Patricia Smith MD [address] [place] [address] PCP - General 09/18/20
[2024-04-01 07:42] LABS: Basophils Absolute Auto 0.1 K/mm3 (0.0-0.1); Basophils Percent Auto 0.9 % (0.2-1.2); Eosinophils Absolute Auto 0.2 K/mm3 (0-0.3); Eosinophils Percent Auto 3.3 % (0-4.4); Hematocrit 43.4 % (37.0-47.0); Hemoglobin 13.9 g/dL (12.0-15.0); Immature Granulocyte Absolute 0.02 K/mm3 (0.00-0.031); Immature Granulocyte Percent A 0.3 % (0-0.5); Lymphocytes Absolute Auto 1.83 K/mm3 (0.9-3.2); Lymphocytes Percent Auto 31.7 % (18.3-44.2); Mean Corpuscular Hemoglobin 28.8 pg (26-34); Mean Corpuscular Volume 89.9 fl (80-100); Mean Platelet Volume 10.3 fl (7.4-10.4); Monocytes Absolute Auto 0.5 K/mm3 (0.1-0.6); Monocytes Percent Auto 9.4 % (2.6-8.5); Neutrophils Absolute Auto 3.1 K/mm3 (1.3-6.7); Neutrophils Percent Auto 54.4 % (45.5-73.1); Platelet Count Result 237 k/mm3 (150-375); Red Blood Count 4.83 M/mm3 (4.2-5.4); Red Cell Distribution Width 13.3 % (11.5-14.5); White Blood Count 5.8 K/mm3 (4.5-10.0)
[2024-04-01 10:18] LABS: Alanine Aminotransferase 23 U/L (6-35); Albumin Level 4.1 g/dL (3.5-5.1); Alkaline Phosphatase 78 U/L (38-126); Anion Gap 7 mmol/L (4-12); Aspartate Amino Transferase 32 U/L (14-36); Bilirubin,Total 0.7 mg/dL (0.2-1.3); Blood Urea Nitrogen 22 mg/dL (7-17); Calcium 9.7 mg/dL (8.4-10.2); Carbon Dioxide 30 mmol/L (22-30); Chloride 103 mmol/L (98-107); Cholesterol 295 mg/dL (0-200); Estimated Glomerular Filt Rate > 60; Glucose 91 mg/dL (65-110); HDL Direct 73 mg/dL; Potassium 4.7 mmol/L (3.4-5.0); Sodium 140 mmol/L (137-145); Triglycerides 176 mg/dL (<150)
[2024-04-01 10:29] LABS: LDL Cholesterol Direct 160 mg/dL
[2024-04-01 10:44] LABS: Hemoglobin A1C 6.2 % (<5.7)
== END 2024-04-01 07:13 | disposition home or self-care (01) ==
PROVIDERS: PCP Family Medicine; Visit Provider Student in an Organized Health Care Education/Training Program
DX: F41.1 Generalized anxiety disorder (principal); R73.09 Other abnormal glucose; I10 Essential (primary) hypertension; E78.2 Mixed hyperlipidemia
CPT/HCPCS: 36415; 80053; 80061; 83036; 84443; 85025

== ENCOUNTER 2024-04-02 07:29 | Outpatient (CLI) | payer MEDICARE, SELFPAY ==
--- NOTE | ~2024-04-02 | CT_ITS ---
EXAMINATION: CT sinus wo con DATE: 04/02/2024 07:50 INDICATION: Chronic sinusitis TECHNIQUE: Computed tomography (CT) of the paranasal sinuses was performed without intravenous contra st. The dose-length product was 167.01 mGy-cm. Automated exposure control and iterative reconstructio n technique were employed. COMPARISON: None FINDINGS: There is mucosal thickening of the maxillary, ethmoid and right sphenoid sinus. There is a air-fluid level in the right sphenoid sinus. Mastoids are pneumatized. There are changes of lens repl acement surgery on the left. Leftward nasal septal deviation. No mucoperiosteal reaction. IMPRESSION: 1. Moderate sinus disease, possibly acute superimposed on chronic. Reviewed, dictated and finalized at location B. NICAL ARTIST
--- OUTSIDE RECORDS SUMMARY | 2024-04-02 07:35 | XMS_ITS | Referral Summary ---
Author Organization [facility] [email or web address] Address [address] [place] [address] Care Team Providers Care Systems Architect Name Role Phone Patricia Smith MD Primary Care Provider + Source Comments [facility],non-owned Affiliates and Associated Physician Practices is amultiple site organization consisting of ambulatory clinics and hospital sitesin [place], [place], [place] and [place]. This disclosure is being madepursuant to the Care Everywhere program and may not contain all information available regarding this patient. Last updated 17.[facility] [email or web address] Immunizations Name Administration Dates Next Due INFLUENZA VACCINE, HIGH-DOSE , QUADR. (FLUZONE HIGH-DOSE QUADRIVALENT; 65Y+), 0.7 ML (HD-IIV4) 12/29/2015 Social History Tobacco Use Types Packs/Day Years Used Date Smoking Tobacco: Never Assessed Sex and Gender Information Value Date Recorded Sex Assigned at Not on file Gender Identity Not on file Sexual Orientation Not on file Plan of Treatment Not on file Care Teams Systems Architect Relationship Specialty Start Date End Date Patricia Smith MD [address] [place] [address] PCP - General 09/18/20
--- OUTSIDE RECORDS SUMMARY | 2024-04-02 07:35 | XMS_ITS | Referral Summary ---
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
--- OUTSIDE RECORDS SUMMARY | 2024-04-02 07:35 | XMS_ITS | Clinical Summary ---
Author Organization [facility] [employer] Address [address] [place] [address] Care Team Providers Care Enchilada Maker Name Role Phone Patricia Smith MD Primary Care Provider + Source Comments [facility] [employer],non-owned Affiliates and Associated Physician Practices is amultiple site organization consisting of ambulatory clinics and hospital sitesin [place], [place], [place] and [place]. This disclosure is being madepursuant to the Care Everywhere program and may not contain all information available regarding this patient. Last updated 17.[facility] Immunizations Name Administration Dates Next Due INFLUENZA [...] age to complete this topic Care Teams Enchilada Maker Relationship Specialty Start Date End Date Patricia Smith MD [address] [place] [address] PCP - General 09/18/20
--- OUTSIDE RECORDS SUMMARY | 2024-04-02 07:35 | XMS_ITS | Patient Health Summary ---
Author Organization [facility] [employer] Address [address] [place] [address] Care Team Providers Care Mechanical Fitter Name Role Phone Patricia Smith MD Primary Care Provider + Note from [facility],non-owned Affiliates and Associated Physician Practices is amultiple site organization consisting of ambulatory clinics and hospital sitesin [place], [place], [place]. This disclosure is being madepursuant to the Care Everywhere program and may not contain all information available regarding this patient. Last updated 17.[facility] Immunizations * INFLUENZA VACCINE, HIGH-DOSE, QUADR. (FLUZONE HIGH-DOSE QUADRIVALENT; 65Y+), 0.7 ML (HD-IIV4)(Given 12/29/2015) Social History Tobacco Use Types Packs/Day Years Used Date Smoking Tobacco: Never Assessed Sex and Gender Information Value Date Recorded Sex Assigned at Not on file Gender Identity Not on file Sexual Orientation Not on file Care Teams Mechanical Fitter Relationship Specialty Start Date End Date Patricia Smith MD [address] [place] [address] PCP - General 09/18/20
--- OUTSIDE RECORDS SUMMARY | 2024-04-02 07:35 | XMS_ITS | Clinical Summary ---
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
--- OUTSIDE RECORDS SUMMARY | 2024-04-02 07:35 | XMS_ITS | Data Portability ---
Author Organization [facility] Address [address] [place] [address] Care Team Providers Care Best Second Jobs Name Role Phone JERRY SANDOVAL Primary Care Provider Assessment Encounter Date Assessment Date Assessment LastModified by Organization Details LastModified Time 08/15/2020 08/15/2020 healthy female exam/menopause pap- none further- hyst mammogram ordered and encouraged colonoscopy referral placed dexa oprdered and encouraged Encouraged weight bearing exercise and 1500mg daily of Calcium with Vitamin D FU 1 year or prn [email or web address] Not available 08/15/2020 14:32:45 12/03/2022 12/03/2022 Annual [...] bilat eral No observ ation record ed. [facility] [address], [place], [address], 10/19/2020 11:02:20 10/19/19 21 10/17/2020 DEXA, axial skele ton + verte bral fract ure asses sment No observ ation record ed. [facility] [address], [place], [address], 10/24/2020 14:14:09 11/13/1911/10/2021 MAMMO , scree adebayo, bilat eral No observ ation record ed. [facility] [address], [place], [address], 11/13/2021 14:49:07 Result Notes None recorded. Problems Name Problem SNOMED Code Status Onset Date Resolution Date Notes Provider Name and Address Organization Details Recorded Time Screenin g for malignan t neoplasm of rectum Completed 201608/15/2020 Encounte r for screenin g for malignan t neoplasm of rectum;R ecorded Elsewher e: No Locat ion: [facility] S ource: EHR Power Shovel Engineer francy: N Adelita ce ID: 0001 Lorenzo lable Time: 01:00:00 PM Jennifer Gomez MD [address], [place], [address], [facility] 14:18:[address] Concept Completed 201608/15/2020 Well woman check w/o abnormal finding; Recorded Elsewher e: No Locat ion: [facility] S ource: EHR Power Shovel Engineer francy: N Terrenceti ce ID: 0001 Lorenzo lable Time: 01:00:00 PM Jennifer Gomez MD [address], [place], [address], [facility] 14:19:[address] Concept Completed 201508/15/2020 Encntr for general adult medical exam w/o abnormal findings ;Recorde d Elsewher e: No Locat ion: [facility] S ource: EHR Power Shovel Engineer francy: N Terrenceti ce ID: 0001 Lorenzo lable Time: 10:30:[address] MD [address], [place], [address], [facility] 1 14:18:58 Speciali zed medical examinat ion Completed 201408/15/2020 Gynecolo gical Examinat ion;[place] rded Elsewher e: No Locat ion: [facility] S ource: EHR Power Shovel Engineer francy: N Adelita ce ID: 0001 Lorenzo lable Time: 01:30:00 PM Jennifer Gomez MD [address], [place], [address], [facility] 14:19:02 Screenin g for malignan t neoplasm of cervix Completed 201708/15/2020 Encounte r for screenin g for malignan t neoplasm of cervix;R ecorded Elsewher e: No Locat ion: [facility] S ource: EHR Power Shovel Engineer francy: N Adelita ce ID: 0001 Lorenzo lable Time: 03:00:00 PM Jennifer Gomez MD [address], [place], [address], [facility] 14:18:51 Disorder of breast 85015619 Completed 201508/15/2020 Disorder of breast, unspecif ied;[place] rded Elsewher e: No Locat ion: [facility] S ource: EHR Power Shovel Engineer francy: N Adelita ce ID: 0001 Lorenzo lable Time: 10:30:00 AM Jennifer Gomez MD [address], [place], [address], [facility] 14:18:47 Adult health examinat ion Completed 201308/15/2020 Routine Medical Exam;Rec orded Elsewher e: No Locat ion: [facility] S ource: EHR Power Shovel Engineer francy: N Adelita ce ID: 0001 Lorenzo lable Time: 10:30:00 AM Jennifer Gomez MD [address], [place], [address], [facility] 14:18:45 Pain of breast 98658305 Completed 201108/15/2020 Mastodyn ia;Recor ded Elsewher e: No Locat ion: [facility] S ource: EHR Power Shovel Engineer francy: N Practi ce ID: [id number] Lorenzo lable Time: 11:15:00 AM Jennifer Gomez MD [address], [place], [address], [facility] 14:18:49 Screenin g for malignan t neoplasm of colon Completed 201008/15/2020 Special screenin g for malignan t neoplasm s, colon;Pr actice ID: [id number] Jennifer Gomez MD [address], [place], [address], [facility] 14:18:54 Problem Notes None recorded. Procedures Surgical History Date Name Laterality Status Provider Name and Address Organization Details Recorded Time 11/11/19 22 Date of Last Mammogram completed Amie Burnett [facility] 12/03/2022 10:33:52 08/07/19 18 Date of Last Pap Smear completed [facility] 08/12/2020 11:34:36 02/10/19 07 colonoscopy completed [facility] 08/12/2020 11:33:24 02/10/19 02 total abdominal hysterectomy with bilateral salpingo-oophorec jaqueline completed Jennifer Gomez MD [address], [place], [address], [facility] 08/15/2020 14:28:27 02/10/18 97 Dilation and Curettage completed [facility] 08/12/2020 11:31:40 tonsillectomy completed [facility] 08/12/2020 11:31:30 Breast Biopsy completed Amie Burnett [facility] 12/03/2022 15:09:08 Imaging Results Imaging Date Name Status LastModified by Organiz ation Details LastModified Time 10/17/2020 MAMMO, screening, bilateral completed [address] [place] [address], [address], 10/19/2020 11:02:20 10/17/2020 DEXA, axial skeleton + vertebral fracture assessment completed [address], [place], [address], 10/24/2020 14:14:09 11/10/2021 MAMMO, screening, bilateral completed [address] [address], [place], [address], 11/13/2021 14:49:07 Procedure Notes None recorded. Medical [...] Prescrib ed Elsewher e: Yes Loca tion: [facility] odify By: gilmar rosales DateTime : 07/01/19 14 10:30:00 AM Not Available Not Available Not Available amlodipin e 5 mg tablet TAKE 1 TABLET BY MOUTH ONCE DAILY 12/11 completed Not Available Not Available Not Available carvedilo l 3.125 mg tablet take 1 tablet by oral route 2 times every day with food 07/15 completed Prescrib ed Elsewher e: Yes Loca tion: [facility] odify By: lsloan E ncounter DateTime : 07/01/19 14 10:30:00 AM Not Available Not Available Not Available Prilosec 10 mg capsule,d elayed release take 2 capsule by oral route every day before a meal 08/11 completed Prescrib ed Elsewher e: Yes Loca tion: Shabnam ratna [facility] odify By: amkaleksey Ratna ncounter DateTime [...] ed Elsewher e: Yes Loca tion: [facility] odify By: gilmar rosales DateTime : 07/01/19 14 10:30:00 AM Not Available Not Available Not Available Vitamins and Minerals active Not Available Not Available Not Available Zyrtec [address] by Topical route every USE ASS NEEDED WITH INTERCOU RSE 07/05 completed Prescrib ed Elsewher e: Yes Loca tion: [facility] odify By: gilmar rosales DateTime : [...] Updated DateTime 08/15/2020 152.4 cm 33.8 kg/m2 87589.48 g 124 mm[Hg] 78 mm[Hg] Kenya Patterson [facility] 14:09:00 Date Recorded Body height Body mass index (BMI) Body weight Systolic blood pressure Diastolic blood pressure Provider Name and Address Organization Details Last Updated DateTime 12/03/2022 152.4 cm 33.2 kg/m2 67508.7 g 124 mm[Hg] 71 mm[Hg] Amie Burnett [facility] 15:06:13 Social History Question Answer Notes LastModified by Organizat ion Details LastModified Time Tobacco Smoking Status Former Smoker Amie Burnett celina [facility] 12/03/2022 15:08:54 What Is Your Level [...] SNOMED-CT Code Diagnosis ICD10 Code Diagnosis Note [id number] Jennifer Gomez MD [place] [address] [address] 08/15/2020 13:21:59 08/15/2020 14:33:16 Gynecologic examination [id number] Z01.419 [id number] Gila CosmeROLY [place] [address] [address] 12/03/2022 14:28:20 12/03/2022 15:49:54 Gynecologic examination [id number] Z01.419 WWEpostmen opausalpap s no longer neededSTI testing declinedma mmogram and dexa are scheduled for 04/2023enc ouraged to find out when last colonoscop y was, she will check with [facility] in 1 yr or sooner if needed Take Calcium with Vitamin D 12-1500mg daily.Do monthly self breast exams.It is advised to get annual flu shot in the fall and she could obtain at [facility] or [facility] care clinic. If you haven't received the [...] 08/15/2020 1 MEDICARE B: [facility]EN [facility] [place] MEDICARE S [place] [id number] Marychuy S Judit 08/15/2020 2 [employer] (MEDICARE SUPPLEMENT) Marychuy S Judit [id number] Marychuy S Judit 12/03/2022 1 MEDICARE B: KAREN GIVENS [facility] MEDICARE S [place] [id number] Marychuy S [place] 12/03/2022 2 [employer]ET[employer] (MEDICARE SUPPLEMENT) Marychuy S Judit [id number] Marychuy Brown Judit Notes Date Note Type [...] concerns-none Jennifer Gomez MD [address], [place], [address], [facility] 08/15/2020 14:33:02 12/03/2022 text/html Annual Spinner Tender Post-MenopausalRepo rted bypatient.Menopausa l Symptoms:no menopausal symptoms; [...] abnormal paps ROLY Juárez [address], [place], [address], [facility] 12/03/2022 15:26:08 OBGyn Episode Ob Episode Information Episode Created Date Number of Fetuses Patient Bloodtype Patient rh Status Prepregnancy Weight lbs Domestic Partner Domestic Partner Phone Father Name Riprap Worker Status 08/13/19 21 1 CLOSED Fetus Data First Name Last Name Admitted to NICU Weight (g) Sex Living Outcome Pediatric Complications Fetus ID Race Codes Race Delivery Type M [id number] Vaginal Delivery Gustavo Calculation Initial Gustavo Date [...] Domestic Partner Domestic Partner Phone Father Name Riprap Worker Status 08/13/19 21 1 CLOSED Fetus Data First Name Last Name Admitted to NICU Weight (g) Sex Living Outcome Pediatric Complications Fetus ID Race Codes Race Delivery Type , Spontane ous [id number] Gustavo Calculation Initial Gustavo Date Initial Exam Date Initial Exam Provider Initial Ultrasound Date Last Menstrual Period Date Ultra Sound Weeks Gestation 0 Eighteen To Twenty Week Gustavo Update Ultra Sound Date Fundal Height At Umbil Quickening Date Ultra Sound Latest Weeks Gestation Final Gustavo Confirmed By Final Ugstavo Confirmed Date Final Gustavo Date Ultra Sound [...]
== END 2024-04-02 07:30 | disposition home or self-care (01) ==
PROVIDERS: PCP Family Medicine; Visit Provider Student in an Organized Health Care Education/Training Program
DX: J32.9 Chronic sinusitis, unspecified (principal); R41.89 Other symptoms and signs involving cognitive functions and awareness
CPT/HCPCS: 70486

== ENCOUNTER 2024-04-14 09:51 | Emergency (ER) | payer MEDICARE, SELFPAY ==
--- NOTE | 2024-04-14 09:53 | ED_ITS ---
HPI - Ear Problem General Chief complaint: Ear Stated complaint: EARS CLOGGED/DIZZY Source: patient and RN notes reviewed Mode of arrival: ambulatory Limitations: no limitations History of Present Illness HPI Narrative: patient is a 78-year-old female who presents to the [facility] with complaints of bilateral ear pain, worse on the left than the right. Patient states that she was treated for an ear infection in the left ear and mid March. She then return to her primary care physician and was told she had fluid behind the ears and was started on dexamethasone. She is continuing to take the dexamethasone at this time. Patient states that she is concerned cerumen impaction. She denies hearing deficit. Denies recent fevers. Denies ear drainage. Related Data Home Medications ?Medication ?Instructions ?Recorded ?Confirmed ?Last Taken ?Type psyllium husk 0.52 gram capsule 0.52 gm PO BID 01/25/19 03/29/24 Unknown History (Daily Fiber) magnesium 250 mg tablet 250 mg PO DAILY 04/23/21 03/29/24 Unknown History ascorbate calcium (vitamin C) 500 1,000 mg PO DAILY 11/07/22 03/29/24 Unknown History mg tablet famotidine 20 mg tablet (Pepcid) 10 mg PO QHS PRN 11/07/22 03/29/24 Unknown History green tea extract 375 mg capsule mg PO 11/07/22 03/29/24 Unknown History turmeric root extract 500 mg 1,000 mg PO DAILY 11/07/22 03/29/24 Unknown History capsule azelastine 137 mcg (0.1 %) nasal 137 mcg intranasal Q12H PRN 07/30/23 03/29/24 Unknown History spray Allergies Allergy/AdvReac Type Severity Reaction Status Date / Time ezetimibe (From Zetia) Allergy Muscle Pain Verified 04/14/24 10:10 AMIE Inhibitors AdvReac Unknown Unknown Verified 04/14/24 10:10 fenofibrate AdvReac Unknown myalgia Verified 04/14/24 10:10 Shjfiyh-MRI-YgG Reductase AdvReac Unknown Unknown Verified 04/14/24 10:10 Inhibitor (Ibetvnw-Qxr-Raj Reductase Inhibitor) Review of Systems Review of Systems: CONSTITUTIONAL: Denies fever, chills, or sweats. EYES: Denies visual changes, redness, or discharge. ENT: Reports otalgia but denies sore throat CARDIOVASCULAR: Denies chest pain, palpitations, or edema. RESPIRATORY: Denies cough or dyspnea. GASTROINTESTINAL: Denies abdominal pain, nausea, vomiting, or diarrhea. GENITOURINARY: Denies dysuria or hematuria. SKIN: Denies rash or itching. MUSCULOSKELETAL: Denies back pain, joint pain, or myalgia. NEUROLOGIC: Denies headache, numbness, or weakness. Pertinent positives per HPI. [facility] Past Medical History Medical History Vitamin D deficiency Vitamin B deficiency Right hip pain Right elbow pain Residual hemorrhoidal skin tags Psychophysiological insomnia Primary generalized (osteo)arthritis Pre-diabetes Postmenopausal Perianal irritation Paresthesia and pain of both upper extremities Palpitations with regular cardiac rhythm Pain and swelling of right ankle Non morbid obesity due to excess calories Neuropathy Myalgia Mixed hyperlipidemia Lumbar spondylosis Low back pain radiating to both legs Impaired fasting glucose Hemorrhoids without complication GERD without esophagitis Fall down steps Dysphagia as late effect of cerebral aneurysm Dietary counseling and surveillance (11/12/18) Cubital tunnel syndrome on left Counseling for living will Chronic fatigue Chest pain in adult Cervical spondylosis with radiculopathy Bronchitis Benign essential HTN Atherosclerosis of [place] coronary artery of [place] heart without angina pectoris Anxiety Allergic rhinitis, unspecified Allergic rhinitis due to pollen Acute recurrent maxillary sinusitis Acute non-recurrent maxillary sinusitis Acute non-recurrent frontal sinusitis Abnormal stress ECG with treadmill Sciatica Central sleep apnea Borderline diabetes mellitus Hyperlipidemia MDD (major depressive disorder), recurrent episode, moderate Complex sleep apnea syndrome History of tobacco abuse Hypertension Family History Family History Father Family history of malignant neoplasm of stomach Patient's father is Family history of throat cancer Mother Family history of lung cancer Patient's mother is Family history of malignant neoplasm of brain Sibling Diabetes mellitus Family history of blood dyscrasia Other Family history of alcoholism Social History Social History Social History: Caffeine-coffee Smoking packs per day: 1 Smoking cigarettes per day: 20.0 Years smoked: 20 Smoking pack-years: 20.00 Smoking status: Former smoker Tobacco type: cigarettes Second hand tobacco smoke exposure: No Smoking end date: 02/10/99 Alcohol intake: never Substance use: never Substance use type: does not use Do You Feel Safe in your Home?: Yes Lack of Transportation: No Lack of Food: Never True Current Housing: I Have Housing Concerned About Future Housing: No Difficulty Paying Gas/Electric Bills: No Difficulty Paying for Meds: No Currently Unemployed: No Education: Trade/Vocational Certificate Difficulty w/ Childcare or Family Care: No Living arrangements: with family Additional living arrangements comments: Pt son and granddaughter live with her. Occupation/Education: retired Gender identity (if verbalized by the patient): Female Sexual Orientation (if Verbalized by the Patient): Straight or Heterosexual Spiritual care concerns: No Comments At the time of my signature, I reviewed and agree with the nursing past medical, surgical, social, and family history. There is no relevant family history pertinent to the patient complaint. Exam Narrative: GENERAL: This is a well-nourished, well-developed patient, in no apparent distress. HEAD: normocephalic, atraumatic. EYES: Sclera clear/white. Vision is grossly intact. EARS: External ears normal, right auditory canals clear and without drainage, left canal with excessive cerumen. TMs normal without perforation. Hearing grossly intact. NOSE: External nose normal with no obvious nasal discharge, nares without redness, no rhinorrhea. THROAT: Mucous membranes moist, posterior pharynx clear. NECK: Neck supple, non-tender without lymphadenopathy, masses or thyromegaly. CARDIOVASCULAR: Regular rate and rhythm without murmurs, gallops, or rubs. RESPIRATORY: Clear to auscultation. Breath sounds equal bilaterally. No wheezes, rales, or rhonchi. GASTROINTESTINAL: Abdomen soft, non-tender, nondistended. Bowel sounds are active. No hepato-splenomegaly, or palpable masses. No guarding. SKIN: warm, intact with no suspicious lesions or rash, good texture and turgor. NEURO: awake, alert, and oriented to person, place and time. There were no obvious focal neurologic abnormalities. Course Course Level of Care: Express Care Visit Vital Signs Vital signs: Vital Signs Oxygen Delivery Room Air 04/14/24 10:04 Temperature 97.1 F L 04/14/24 10:05 Pulse Rate 97 04/14/24 10:05 Respiratory Rate 16 04/14/24 10:05 Blood Pressure 121/67 04/14/24 10:05 Pulse Oximetry 98 04/14/24 10:05 Oxygen Delivery Room Air 04/14/24 10:04 Reviewed Procedures Ear Wax Removal Left Ear: Ear Wax Removal Date: 04/14/24 Ear Wax Removal Time: 10:15 Results: Re-examined: cerumen removed completely TM Examination: TM(s) intact, normal appearance Ear Canal Exam: atraumatic Patient Tolerated Procedure: well Complications: no problems Technique: ear canal curetted Medical Decision Making MDM Narrative Medical decision making narrative: Curette used to remove excessive ear wax. Patient was instructed to follow up with primary care physicians /ENT. Advised to continue taking the dexamethasone as directed. Differential Diagnosis Differential Diagnosis: otitis media, otitis externa, cerumen impaction Vital Signs Vital Signs: Vital Signs Oxygen Delivery Room Air 04/14/24 10:04 Temperature 97.1 F L 04/14/24 10:05 Pulse Rate 97 04/14/24 10:05 Respiratory Rate 16 04/14/24 10:05 Blood Pressure 121/67 04/14/24 10:05 Pulse Oximetry 98 04/14/24 10:05 Oxygen Delivery Room Air 04/14/24 10:04 Critical Care Time Critical Care Time Critical Care Time: No Discharge Plan Discharge Clinical Impression: Excessive cerumen in left ear canal Patient Disposition: Home, Self-Care Condition: Stable Instructions: Fluid In The Ear (Serous Otitis Media) (ED) Additional Instructions: Continue taking dexamethasone as prescribed. Follow-up with primary care physician/ENT. Patient Language: Malian Prescriptions: No Action azelastine 137 mcg (0.1 %) aerosol,spray 137 mcg intranasal Q12H PRN Rx Instructions: administer into each nostril ascorbate calcium (vitamin C) 500 mg tablet 1,000 mg PO DAILY famotidine [Pepcid] 20 mg tablet 10 mg PO QHS PRN turmeric root extract 500 mg capsule 1,000 mg PO DAILY green tea extract 375 mg capsule PO psyllium husk [Daily Fiber] 0.52 gram capsule 0.52 gm PO BID magnesium 250 mg tablet 250 mg PO DAILY fluticasone propionate 50 mcg/actuation spray,suspension 1 spray intranasal DAILY PRN (Reason: allergy symptoms) Qty: 16 0RF Rx Instructions: administer into each nostril dexamethasone 4 mg tablet 4 mg PO BID Qty: 24 0RF Rx Instructions: 4mg tablet PO; 1 and a half tabs BID x4days, then 1 tab BID x4days, then half tab BID x4days Follow-up/Referrals: Javid Cintron MD [Primary Care Provider] - Time of Disposition: 10:18
[2024-04-14 10:05] VITALS: BP 121/67; PULSE 97; RESP 16; TEMP 36.2; O2SAT 98
== END 2024-04-14 10:20 | disposition home or self-care (01) ==
PROVIDERS: Emergency Provider Nurse Practitioner; PCP Family Medicine
DX: H61.22 Impacted cerumen, left ear (principal); Z87.891 Personal history of nicotine dependence; I25.10 Atherosclerotic heart disease of native coronary artery without angina pectoris; I10 Essential (primary) hypertension; R73.03 Prediabetes; E78.2 Mixed hyperlipidemia; K21.9 Gastro-esophageal reflux disease without esophagitis; E78.5 Hyperlipidemia, unspecified
CPT/HCPCS: 69210; 99212; G0463

== ENCOUNTER 2024-06-07 15:16 | Outpatient (CLI) | payer MEDICARE, SELFPAY ==
--- NOTE | ~2024-06-07 | MM_ITS ---
EXAMINATION: MM screening [facility] BI w yrn HISTORY: Screening mammogram TECHNIQUE: Craniocaudal and mediolateral oblique 3-D tomosynthesis images were obtained and synthetic 2-D images were generated. CAD analysis was submitted and interpreted. COMPARISON: 04/03/2023, 11/10/2021, 10/17/2020, 10/12/2019 BREAST PARENCHYMAL COMPOSITION:Not Dense. There are scattered areas of fibroglandular density. FINDINGS: No suspicious mass, calcification, or architectural distortion are identified in either gwen ast to suggest malignancy. There has been no suspicious interval change. IMPRESSION: No mammographic evidence of malignancy. Recommend routine screening mammography in one year. BI-RADS Category 1: Negative Reviewed, dictated and finalized at location .
--- OUTSIDE RECORDS SUMMARY | 2024-06-07 17:30 | XMS_ITS | Continuity of Care Document ---
Author Organization [facility] Address [address] [place] [address] Phone Care Team Providers Care Business Administration Teacher Name Role Phone Lois MS, OTR/L, EMERALDT, [...] Diagnoses Date Provider Providers Copied on Encounter [facility] [address] [address], [place], [place], [id number], tel:[phone] [place] Oth symptoms and signs involving the musculoskeletal systemParesthes ia of skinPain in left handLesion of ulnar nerve, left upper limb [address], [address], [place], [address], [place]. tel:[phone] Referring Provider: Yany Shay, [address] [place] [address] [address], [place], [address]. tel:[phone] [facility], [address] [address], [place], [id number], tel:[phone] [place] Ot symptoms and signs involving the musculoskeletal systemParesthes ia of skinPain in left handLesion of ulnar nerve, left upper limb June-0 9 Birdrainervictor manuel Du. [address] [place] [address], [address], [place], [facility], . tel:[phone] Referring Provider: Yany Shay, [facility] [address], [place], [address]. tel:[phone], [place], [place], [id number], tel:[phone] [place] Ot symptoms and signs involving the musculoskeletal systemParesthes ia of skinPain in left handLesion of ulnar nerve, left upper limb May-2 9 Wiliamamaliavictor manuel LittleAna Laura. [address] [place] [address], [address], [place], [facility], . tel:[phone] Referring Provider: Yany Shay, [facility] [address], [place], [address]. tel:[phone] [facility] [address] [place] [address], [place], [place], [id number], tel:[phone] [facility] symptoms and signs involving the musculoskeletal systemParesthes ia of skinPain in left handLesion of ulnar nerve, left upper limb May- 9 Claudette Moore. . Referring Provider: Yany Shay, [facility] [address], [place], [address]. tel:[phone] Family History Family Member Type Diagnosis Age At Onset No Information Payers Payer name Insurance type Covered green party ID Authorradua timaria m(s) [employer] [id number] Social History Type Description Quantity Date Captured [...]
--- OUTSIDE RECORDS SUMMARY | 2024-06-07 17:30 | XMS_ITS | Data Portability ---
Author Organization [facility] Address [address] [place] [address] Care Team Providers Care Retail Cashier Name Role Phone JERRY SANDOVAL Primary Care Provider Assessment Encounter Date Assessment Date Assessment LastModified by Organization Details LastModified Time 08/15/2020 08/15/2020 healthy female exam/menopause pap- none further- hyst mammogram ordered and encouraged colonoscopy referral placed dexa oprdered and encouraged Encouraged weight bearing exercise and 1500mg daily of Calcium with Vitamin D FU 1 year or prn [email or web address] Not available 08/15/2020 14:32:45 12/03/2022 12/03/2022 Annual [...] bilat eral No observ ation record ed. [facility] [address], [place], [address], 10/19/2020 11:02:20 10/19/19 21 10/17/2020 DEXA, axial skele ton + verte bral fract ure asses sment No observ ation record ed. [facility] [address], [place], [address], 10/24/2020 14:14:09 11/13/1911/10/2021 MAMMO , scree adebayo, bilat eral No observ ation record ed. [facility] [address], [place], [address], 11/13/2021 14:49:07 Result Notes None recorded. Problems Name Problem SNOMED Code Status Onset Date Resolution Date Notes Provider Name and Address Organization Details Recorded Time Screenin g for malignan t neoplasm of rectum Completed 201608/15/2020 Encounte r for screenin g for malignan t neoplasm of rectum;R ecorded Elsewher e: No Locat ion: [facility] S ource: EHR Barrel Tester And Drainer francy: N Adelita ce ID: 0001 Lorenzo lable Time: 01:00:00 PM Jennifer Gomez MD [address], [place], [address], [facility] 14:18:[address] Concept Completed 201608/15/2020 Well woman check w/o abnormal finding; Recorded Elsewher e: No Locat ion: [facility] S ource: EHR Barrel Tester And Drainer francy: N Terrenceti ce ID: 0001 Lorenzo lable Time: 01:00:00 PM Jennifer Gomez MD [address], [place], [address], [facility] 14:19:[address] Concept Completed 201508/15/2020 Encntr for general adult medical exam w/o abnormal findings ;Recorde d Elsewher e: No Locat ion: [facility] S ource: EHR Barrel Tester And Drainer francy: N Terrenceti ce ID: 0001 Lorenzo lable Time: 10:30:[address] MD [address], [place], [address], [facility] 1 14:18:58 Speciali zed medical examinat ion Completed 201408/15/2020 Gynecolo gical Examinat ion;[place] rded Elsewher e: No Locat ion: [facility] S ource: EHR Barrel Tester And Drainer francy: N Adelita ce ID: 0001 Lorenzo lable Time: 01:30:00 PM Jennifer Gomez MD [address], [place], [address], [facility] 14:19:02 Screenin g for malignan t neoplasm of cervix Completed 201708/15/2020 Encounte r for screenin g for malignan t neoplasm of cervix;R ecorded Elsewher e: No Locat ion: [facility] S ource: EHR Barrel Tester And Drainer francy: N Adelita ce ID: 0001 Lorenzo lable Time: 03:00:00 PM Jennifer Gomez MD [address], [place], [address], [facility] 14:18:51 Disorder of breast [id number] Completed 201508/15/2020 Disorder of breast, unspecif ied;[place] rded Elsewher e: No Locat ion: [facility] S ource: EHR Barrel Tester And Drainer francy: N Adelita ce ID: 0001 Lorenzo lable Time: 10:30:00 AM Jennifer Gomez MD [address], [place], [address], [facility] 14:18:47 Adult health examinat ion Completed 201308/15/2020 Routine Medical Exam;Rec orded Elsewher e: No Locat ion: [facility] S ource: EHR Barrel Tester And Drainer francy: N Adelita ce ID: 0001 Lorenzo lable Time: 10:30:00 AM Jennifer Gomez MD [address], [place], [address], [facility] 14:18:45 Pain of breast 90694088 Completed 201108/15/2020 Mastodyn ia;Recor ded Elsewher e: No Locat ion: Bert segundo [facility] S ource: EHR Barrel Tester And Drainer francy: N Practi ce ID: 0001 Lorenzo lable Time: 11:15:00 AM Jennifer Gomez MD [address], [place], [address], [facility] 14:18:49 Screenin g for malignan t neoplasm of colon Completed 201008/15/2020 Special screenin g for malignan t neoplasm s, colon;Pr actice ID: [id number] Jennifer Gomez MD [address], [place], [address], [facility] 14:18:54 Problem Notes None recorded. Procedures Surgical History Date Name Laterality Status Provider Name and Address Organization Details Recorded Time 11/11/19 22 Date of Last Mammogram completed Amie Burnett [facility] 12/03/2022 10:33:52 08/07/19 18 Date of Last Pap Smear completed [facility] 08/12/2020 11:34:36 02/10/19 07 colonoscopy completed [facility] 08/12/2020 11:33:24 02/10/19 02 total abdominal hysterectomy with bilateral salpingo-oophorec jaqueline completed Jennifer Gomez MD [address], [place], [address], [facility] 08/15/2020 14:28:27 02/10/18 97 Dilation and Curettage completed [facility] 08/12/2020 11:31:40 tonsillectomy completed Kenya [facility] 08/12/2020 11:31:30 Breast Biopsy completed Amie Burnett [facility] 12/03/2022 15:09:08 Imaging Results Imaging Date Name Status LastModified by Organiz ation Details LastModified Time 10/17/2020 MAMMO, screening, bilateral completed [address] [place] [address], [address], 10/19/2020 11:02:20 10/17/2020 DEXA, axial skeleton + vertebral fracture assessment completed [address], [place], [address], 10/24/2020 14:14:09 11/10/2021 MAMMO, screening, bilateral completed [address] [address], [place], [address], 11/13/2021 14:49:07 Procedure Notes None recorded. Medical [...] Prescrib ed Elsewher e: Yes Loca tion: [facility] odify By: gilmar rosales DateTime : 07/01/19 14 10:30:00 AM Not Available Not Available Not Available amlodipin e 5 mg tablet TAKE 1 TABLET BY MOUTH ONCE DAILY 12/11 completed Not Available Not Available Not Available carvedilo l 3.125 mg tablet take 1 tablet by oral route 2 times every day with food 07/15 completed Prescrib ed Elsewher e: Yes Loca tion: [facility] odify By: lsloan E ncounter DateTime : 07/01/19 14 10:30:00 AM Not Available Not Available Not Available Prilosec 10 mg capsule,d elayed release take 2 capsule by oral route every day before a meal 08/11 completed Prescrib ed Elsewher e: Yes Loca tion: Shabnam ratna [facility] odify By: [email or web address] Ratna ncounter DateTime : [...] ed Elsewher e: Yes Loca tion: Bert [facility] odify By: gilmar rosales DateTime : 07/01/19 14 10:30:00 AM Not Available Not Available Not Available Vitamins and Minerals active Not Available Not Available Not Available Zyrtec [address] by Topical route every USE ASS NEEDED WITH INTERCOU RSE 07/05 completed Prescrib ed Elsewher e: Yes Loca tion: [facility] odify By: gilmar rosales DateTime : [...] Updated DateTime 08/15/2020 152.4 cm 33.8 kg/m2 65047.48 g 124 mm[Hg] 78 mm[Hg] Kenya Patterson [facility] 14:09:00 Date Recorded Body height Body mass index (BMI) Body weight Systolic blood pressure Diastolic blood pressure Provider Name and Address Organization Details Last Updated DateTime 12/03/2022 152.4 cm 33.2 kg/m2 60469.7 g 124 mm[Hg] 71 mm[Hg] Amie Burnett [facility] 15:06:13 Social History Question Answer Notes LastModified by Organizat ion Details LastModified Time Tobacco Smoking Status Former Smoker Amie Hortencia patrick [facility] 12/03/2022 15:08:54 What Is Your Level [...] History Nothing Reported. Medical History Condition Response Other N Blood Transfusion N Dermatologic Disorders N Gestational Diabetes N Anxiety Disorder N Autoimmune disease N Arthritis N Polyps N Infertility N Acid Reflux (GERD) N Cancer N Varicosities N Stroke N Neurologic/Epilepsy N Fibromyalgia N Headaches N Kidney Disease N Heart Problems N Kidney or Bladder Problems N Eating Disorder N Art (IVF or FET) N Hepatitis/Liver Disease N No Past Medical History N Urinary Tract Infection N Asthma N Trauma/Violence N Thrombophilias N Allergies (Food, seasonal, environmental ) N Breast Cancer N Drug/Latex Allergies/Reactions N Lung Disease N Defects or Inherited Disease N Breast Problem N Hematologic disorders N Anesthesia Complications N History of STI N Deep Vein Thrombosis N Polycystic ovary syndrome N History of abnormal pap N Endometriosis N High Cholesterol N Thyroid Problems N GI Problems N Anemia N Psychiatric Illness N Ovarian Cancer N Diabetes N Pulmonary (TB, Asthma) N Eczema N Abuse/Domestic Violence N Depression/ depression N Heart Disease N Pre-Eclampsia N Hypertension Y Osteoporosis N Gynecological History Statement/Question Response Date of [...] SNOMED-CT Code Diagnosis ICD10 Code Diagnosis Note 20257 Jennifer Gomez MD [facility] [address] [address] 08/15/2020 13:21:59 08/15/2020 14:33:16 Gynecologic examination 88617278 Z01.419 [id number] Gila CosmeROLY [facility] [address] [address] 12/03/2022 14:28:20 12/03/2022 15:49:54 Gynecologic examination 57874554 Z01.419 WWEpostmen opausalpap s no longer neededSTI testing declinedma mmogram and dexa are scheduled for 04/2023enc ouraged to find out when last colonoscop y was, she will check with [facility] in 1 yr or sooner if needed Take Calcium with Vitamin D 12-1500mg daily.Do monthly self breast exams.It is advised to get annual flu shot in the fall and she could obtain at [facility] or [facility] care clinic. If you haven't received [...] 08/15/2020 1 MEDICARE B: [facility]EN [facility] [place] MEDICARE S S Judit [id number] [place] 08/15/2020 2 [employer] (MEDICARE SUPPLEMENT) [place] [id number] Marychuy S Judit 12/03/2022 1 MEDICARE B: KAREN GIVENS [facility] MEDICARE S [place] [id number] [place] 12/03/2022 2 [employer] (MEDICARE SUPPLEMENT) [place] [id number] Marychuy Brown Judit Notes Date Note Type [...] concerns-none Jennifer Gomez MD [address], [place], [address], [facility] 08/15/2020 14:33:02 12/03/2022 text/html Annual Plant Breeder Post-MenopausalRepo rted bypatient.Menopausa l Symptoms:no menopausal symptoms; [...] abnormal paps ROLY Juárez [address], [place], [address], [facility] 12/03/2022 15:26:08 OBGyn Episode Ob Episode Information Episode Created Date Number of Fetuses Patient Bloodtype Patient rh Status Prepregnancy Weight lbs Domestic Partner Domestic Partner Phone Father Name Granulator Operator Status 08/13/19 21 1 CLOSED Fetus Data First Name Last Name Admitted to NICU Weight (g) Sex Living Outcome Pediatric Complications Fetus ID Race Codes Race Delivery Type M [id number] Vaginal Delivery Gustavo Calculation Initial Gustavo Date [...] Domestic Partner Domestic Partner Phone Father Name Granulator Operator Status 08/13/19 21 1 CLOSED Fetus Data First Name Last Name Admitted to NICU Weight (g) Sex Living Outcome Pediatric Complications Fetus ID Race Codes Race Delivery Type , Spontane ous [id number] Gustavo Calculation Initial Gustavo Date Initial Exam [...]
--- OUTSIDE RECORDS SUMMARY | 2024-06-07 17:30 | XMS_ITS | Continuity of Care Document ---
Author Organization [facility] Address [address] [place] [address] [place] [address] Phone Care Team Providers Care Yard General Car Supervisor Name Role Phone Walter Martinez Unavailable Unavailable Procedures Procedure Date Eye Exam & Treatment Refraction Eye Exam, New Patient Advance Directives Directive Yes / No Effective Date File Name No Information Encounters Encounter Description Practice Location Reason(s) For Visit Diagnoses Date Provider Providers Copied on Encounter [facility], [address] [place] [address] [address], [place], [place], [id number], tel:[phone] [facility] No Information Apr-0 3-201 0 Krishnasamy Walter. [address], [facility], [place]. tel:[phone] [facility], [address] [place] [address] [address], [place], [place], [id number], tel:[phone] [facility] No Information 0-200 8 Krishnasamy Walter. [address], [facility] [place], [place]. tel:[phone] Family History Family Member Type Diagnosis Age At Onset No Information Payers Payer name Insurance type Covered green party ID Authoriza timaria m(s) [facility] CI [id number] Social History Type Description Quantity Date Captured [...]
--- OUTSIDE RECORDS SUMMARY | 2024-06-07 17:30 | XMS_ITS | Referral Summary ---
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
--- OUTSIDE RECORDS SUMMARY | 2024-06-07 17:30 | XMS_ITS | Clinical Summary ---
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
--- OUTSIDE RECORDS SUMMARY | 2024-06-07 17:31 | XMS_ITS | Clinical Summary ---
Author Organization [facility] Address [address] [facility] [place] [address] Care Team Providers Care Home Appliance Technician Name Role Phone Patricia Smith MD Primary Care Provider + Source Comments [facility],non-owned Affiliates and Associated Physician Practices is amultiple site organization consisting of ambulatory clinics and hospital sitesin [place], [place], [place] and [place]. This disclosure is being madepursuant to the Care Everywhere program and may not contain all information available regarding this patient. Last updated 17.[facility] Immunizations Immunization Administration Dates Next Due INFLUENZA VACCINE, HIGH-DOSE , QUADR. 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 Gender Identity Not on file Sexual Orientation Not on file Plan of Treatment Health Maintenance Due Date Last Done Comments BONE DENSITY TESTING 1945 HEPATITIS C SCREENING 08/03/1964 DTAP/TDAP/TD VACCINES (1 - Tdap) 1965 PNEUMOCOCCAL VACCINE 50+ (1 of 1 - PCV) 1996 ZOSTER VACCINE (1 of 2) 1996 Respiratory Syncytial Virus (RSV) Vaccine Pt: or over 60 yrs (1 - 1-dose 75+ series) 2021 COVID-19 VACCINE ( - 2023-2 5 season) 2023 DEPRESSION SCREENING 02/11/2024 INFLUENZA VACCINE (Season Ended) 2024 12/29/19 16 HEPATITIS B VACCINE Aged Out No longe r eligible based on patient's age to complete this topic HIB VACCINE Aged Out No longer eligi ble based on patient's age to complete this topic HPV VACCINE Aged Out No longer eligi ble based on patient's age to complete this topic MENINGOCOCCAL (Group B) VACC INE SHARED DECISION-MAKING Aged Out No longer eligibl e based on patient's age to complete this topic MENINGOCOCCAL GROUPS A/C/Y/W VACCINE Aged Out No longer eligible b ased on patient's age to complete this topic Insurance MEDICARE MEDICARE Care Teams Home Appliance Technician Relationship Specialty Start Date End Date Patricia Smith MD [address] [place] [address] PCP - General 09/18/20
== END 2024-06-07 15:17 | disposition home or self-care (01) ==
LOC: ANHIMG 15:20
PROVIDERS: PCP Family Medicine; Visit Provider Family Medicine
DX: Z12.31 Encounter for screening mammogram for malignant neoplasm of breast (principal)
CPT/HCPCS: 77063; 77067

== ENCOUNTER 2024-08-05 10:46 | Outpatient (CLI) | payer MEDICARE, SELFPAY ==
--- NOTE | ~2024-08-05 | US_ITS ---
EXAMINATION: US carotid duplex BI DATE: 08/05/2024 16:52 CDT INDICATION: Upper extremity paresthesias TECHNIQUE: Grayscale, color Doppler, and pulsed Doppler images of the cervical carotid arteries were obtained. The degree of vessel stenosis is placed in one of the following categories: normal, <50%, 50-69%, >=7 0% but less than near-occlusion, near-occlusion, or total occlusion. Note that percent stenosis relative to normal distal artery lumen diameter is indirectly measured fro m velocity measurements as described originally by Jeff, et al. Radiology 2003; 229:340-346 and upda phuong by Fredo Massey et al STROKE 2012;43(3);915-921. COMPARISON: None. FINDINGS: There is mild atherosclerosis of both carotid arteries. Peak systolic velocity (in cm/s) is detailed below RIGHT: Right common carotid artery (CCA): 76 cm/s. Right internal carotid artery (ICA) PSV: 67 cm/s. Right ICA end-diastolic velocity (EDV): 21 cm/s. Right ICA/CCA PSV ratio is 0.9. Right external carotid artery (ECA): 91cm/s. There is antegrade flow in the right vertebral artery LEFT: Left common carotid artery (CCA): 60 cm/s. Left internal carotid artery (ICA) PSV: 95 cm/s. Left ICA end-diastolic velocity (EDV): 34 cm/s. Left ICA/CCA PSV ratio is 1.6. Left external carotid artery (ECA): 107cm/s. There is antegrade flow in the left vertebral artery. IMPRESSION: 1. Less than 50% stenosis in the right internal carotid artery. 2. Less than 50% stenosis in the left internal carotid artery. Reviewed, dictated and finalized at location A.
== END 2024-08-05 10:47 | disposition home or self-care (01) ==
PROVIDERS: PCP Family Medicine; Visit Provider Student in an Organized Health Care Education/Training Program
DX: I65.23 Occlusion and stenosis of bilateral carotid arteries (principal); R09.89 Other specified symptoms and signs involving the circulatory and respiratory systems
CPT/HCPCS: 93880

== ENCOUNTER 2024-08-13 16:40 | Emergency (ER) | payer MEDICARE, SELFPAY ==
[2024-08-13 16:47] VITALS: BP 168/78; PULSE 86; RESP 19; TEMP 36.8; O2SAT 98
--- NOTE | 2024-08-13 16:48 | ED.EYEPROB ---
HPI - Eye Problem General Chief complaint: Eye Problems Stated complaint: Eye Irritation Time Seen by Provider: 08/13/24 16:40 Source: patient and RN notes reviewed Mode of arrival: ambulatory Limitations: no limitations History of Present Illness HPI Narrative: 71-year-old female presents Express Care complaining of left eye irritation. Patient reports feeling like there is something in her left eye has mild photophobia. Patient reports having drainage and redness to her left eye as well. Patient has been using [id number] eyedrops with no relief. Patient denies any vision changes, headaches, nausea, vomiting, dizziness lightheadedness, or any other symptoms. Related Data Home Medications ?Medication ?Instructions ?Recorded ?Confirmed ?Last Taken ?Type psyllium husk 0.52 gram capsule 0.52 gm PO BID 01/25/19 07/21/24 Unknown History (Daily Fiber) magnesium 250 mg tablet 250 mg PO DAILY 04/23/21 07/21/24 Unknown History ascorbate calcium (vitamin C) 500 1,000 mg PO DAILY 11/07/22 07/21/24 Unknown History mg tablet famotidine 20 mg tablet (Pepcid) 10 mg PO QHS PRN 11/07/22 07/21/24 Unknown History green tea extract 375 mg capsule mg PO 11/07/22 07/21/24 Unknown History turmeric root extract 500 mg 1,000 mg PO DAILY 11/07/22 07/21/24 Unknown History capsule cholecalciferol (vitamin D3) 25 25 mcg PO DAILY 04/20/24 07/21/24 Unknown History mcg (1,000 unit) capsule vitamin B complex 1 tablet PO DAILY 04/20/24 07/21/24 Unknown History fexofenadine 60 mg tablet (Meggan 60 mg PO Q12H 06/02/24 07/21/24 Unknown History Allergy) Allergies Allergy/AdvReac Type Severity Reaction Status Date / Time ezetimibe (From Zetia) Allergy Muscle Pain Verified 07/21/24 11:08 AMIE Inhibitors AdvReac Unknown Unknown Verified 07/21/24 11:08 fenofibrate AdvReac Unknown myalgia Verified 07/21/24 11:08 Srqxtlx-CUW-LuW Reductase AdvReac Unknown Unknown Verified 07/21/24 11:08 Inhibitor (Xtgpmej-Ade-Qib Reductase Inhibitor) Review of Systems Review of Systems: CONSTITUTIONAL: Denies fever, chills, or sweats. EYES: Denies visual changes or blurry vision. Positive for redness, foreign body sensation,, or discharge. ENT: Denies rhinorrhea, congestion, sore throat, or otalgia. CARDIOVASCULAR: Denies chest pain, palpitations, or edema. RESPIRATORY: Denies cough or dyspnea. GASTROINTESTINAL: Denies abdominal pain, nausea, vomiting, or diarrhea. GENITOURINARY: Denies dysuria or hematuria. SKIN: Denies rash or itching. MUSCULOSKELETAL: Denies back pain, joint pain, or myalgia. NEUROLOGIC: Denies headache, numbness, or weakness. PSYCHIATRIC: Denies anxiety or depression. All other systems reviewed are negative, except as documented in HPI. [facility] Past Medical History Medical History Vitamin D deficiency Vitamin B deficiency Right hip pain Right elbow pain Residual hemorrhoidal skin tags Psychophysiological insomnia Primary generalized (osteo)arthritis Pre-diabetes Postmenopausal Perianal irritation Paresthesia and pain of both upper extremities Palpitations with regular cardiac rhythm Pain and swelling of right ankle Non morbid obesity due to excess calories Neuropathy Myalgia Mixed hyperlipidemia Lumbar spondylosis Low back pain radiating to both legs Impaired fasting glucose Hemorrhoids without complication GERD without esophagitis Fall down steps Dysphagia as late effect of cerebral aneurysm Dietary counseling and surveillance (11/12/18) Cubital tunnel syndrome on left Counseling for living will Chronic fatigue Chest pain in adult Cervical spondylosis with radiculopathy Bronchitis Benign essential HTN Atherosclerosis of [place] coronary artery of [place] heart without angina pectoris Anxiety Allergic rhinitis, unspecified Allergic rhinitis due to pollen Acute recurrent maxillary sinusitis Acute non-recurrent maxillary sinusitis Acute non-recurrent frontal sinusitis Abnormal stress ECG with treadmill Sciatica Central sleep apnea Borderline diabetes mellitus Hyperlipidemia MDD (major depressive disorder), recurrent episode, moderate Complex sleep apnea syndrome History of tobacco abuse Hypertension Family History Family History Father Family history of malignant neoplasm of stomach Patient's father is Family history of throat cancer Mother Family history of lung cancer Patient's mother is Family history of malignant neoplasm of brain Sibling Diabetes mellitus Family history of blood dyscrasia Other Family history of alcoholism Social History Social History Social History: Caffeine-coffee Smoking packs per day: 1 Smoking cigarettes per day: 20.0 Years smoked: 20 Smoking pack-years: 20.00 Smoking status: Former smoker Tobacco type: cigarettes Second hand tobacco smoke exposure: No Smoking end date: 02/10/99 Alcohol intake: never Substance use: never Substance use type: does not use Do You Feel Safe in your Home?: Yes Lack of Transportation: No Lack of Food: Never True Current Housing: I Have Housing Concerned About Future Housing: No Difficulty Paying Gas/Electric Bills: No Difficulty Paying for Meds: No Currently Unemployed: No Education: Trade/Vocational Certificate Difficulty w/ Childcare or Family Care: No Living arrangements: with family Additional living arrangements comments: Pt son and granddaughter live with her. Occupation/Education: retired Gender identity (if verbalized by the patient): Female Sexual Orientation (if Verbalized by the Patient): Straight or Heterosexual Spiritual care concerns: No Comments At the time of my signature, I reviewed and agree with the nursing past medical, surgical, social, and family history. There is no relevant family history pertinent to the patient complaint. Exam Narrative: GENERAL: This is a well-nourished, well-developed adult, in no apparent distress. They are non ill-appearing, nontoxic appearing. HEAD: normocephalic, atraumatic. EYES: Sclera clear/white. Right Conjunctiva normal. Left conjunctiva injected. Exudate present to left eye Vision is grossly intact. Extraocular movements intact. Upper eyelid and lower eyelids normal bilaterally. Pupils PERRLA. Wood's lamp exam of left eye with fluorescein staining: Small Corneal abrasion present. No corneal laceration, no vitreous humor, no dendritic lesions, negative Kasia sign. Eversion left upper and lower eyelids without any evidence of retained foreign body. EARS: External ears normal,Hearing grossly intact. NOSE: External nose normal THROAT: Mucous membranes moist, NECK: Neck supple. CARDIOVASCULAR: Regular rate and rhythm RESPIRATORY: Respiratory rate normal, respiratory effort nonlabored, no respiratory distress SKIN: warm, Dry, intact with no suspicious lesions or rash, good texture and turgor. NEURO: awake, alert, and oriented to person, place and time. There were no obvious focal neurologic abnormalities. Course Course Emergency Course: Portions of this record may have been created with voice recognition software Level of Care: Express Care Visit Vital Signs Vital signs: Vital Signs Temperature 98.2 F 08/13/24 16:47 Pulse Rate 86 08/13/24 16:47 Respiratory Rate 19 08/13/24 16:47 Blood Pressure 168/78 H 08/13/24 16:47 Pulse Oximetry 98 08/13/24 16:47 Oxygen Delivery Room Air 08/13/24 16:47 Temperature 98.2 F 08/13/24 16:47 Pulse Rate 86 08/13/24 16:47 Respiratory Rate 19 08/13/24 16:47 Blood Pressure 168/78 H 08/13/24 16:47 Pulse Oximetry 98 08/13/24 16:47 Oxygen Delivery Room Air 08/13/24 16:47 Reviewed MDM - Eye Problem MDM Narrative Medical decision making narrative: Wood's lamp exam showed patient has a corneal abrasion. Will prophylactically treat erythromycin ointment. Patient denies any vision problems. Discussed physical exam findings. Advised supportive measures and signs/symptoms to go to the ER. Pt is appropriate for outpt treatment and f/u. Differential Diagnosis Differential diagnosis: Likely corneal abrasion, conjunctivitis and glaucoma Critical Care Time Critical Care Time Critical Care Time: No Discharge Plan Discharge Clinical Impression: Corneal abrasion Qualifiers: Encounter type: initial encounter Laterality: left Qualified Code(s): S05.02XA - Injury of conjunctiva and corneal abrasion without foreign body, left eye, initial encounter Patient Disposition: Home Condition: Stable Instructions: Antibiotic Form, Corneal Abrasion (ED) Additional Instructions: Corneal abrasions will heal in 1-2 days. You can wear sunglasses or stay in low light to avoid light sensitivity. Use erythromycin ointment as directed Do not touch or rub your eye. Use over the counter lubricating eye drops as needed for irritation Do not wear contact lenses until issue is resolved You may take Tylenol or ibuprofen as needed for pain, follow the instructions on the bottle. Follow-up with PCP or meringuer if condition is not improving in 2-3days, or or go to the ER if you have develops worsening drainage, redness, pain, or fevers or, vision problems, or any other concerns. [facility] [phone] [facility] [phone] [facility] [phone] [place] [address] Patient Language: Cuban Prescriptions: New erythromycin 5 mg/gram (0.5 %) ointment 1 applic LEFT EYE QID 5 Days Qty: 3.5 0RF No Action ascorbate calcium (vitamin C) 500 mg tablet 1,000 mg PO DAILY famotidine [Pepcid] 20 mg tablet 10 mg PO QHS PRN turmeric root extract 500 mg capsule 1,000 mg PO DAILY green tea extract 375 mg capsule PO vitamin B complex Tablet 1 tablet PO DAILY cholecalciferol (vitamin D3) 25 mcg (1,000 unit) capsule 25 mcg PO DAILY fexofenadine [Meggan Allergy] 60 mg tablet 60 mg PO Q12H psyllium husk [Daily Fiber] 0.52 gram capsule 0.52 gm PO BID magnesium 250 mg tablet 250 mg PO DAILY Follow-up/Referrals: PHYSICIAN,FLOOR WORKER [place] [Primary Care Provider] - Time of Disposition: 17:02
[2024-08-13] MEDS: TETRACAINE HCL 0.5% OPHTH SOLN 4 ML BTL LEFT EYE (16:51)
[2024-08-13] MEDS: FLUORESCEIN SOD 1 MG/STRIP LEFT EYE (16:51)
[2024-08-13] MEDS: DACRIOSE EYE IRRIGATION 118 ML BOTTLE LEFT EYE (16:51)
== END 2024-08-13 17:05 | disposition home or self-care (01) ==
DX: S05.02XA Injury of conjunctiva and corneal abrasion without foreign body, left eye, initial encounter (principal); X58.XXXA Exposure to other specified factors, initial encounter; E78.2 Mixed hyperlipidemia; K21.9 Gastro-esophageal reflux disease without esophagitis; I10 Essential (primary) hypertension; I25.10 Atherosclerotic heart disease of native coronary artery without angina pectoris; E55.9 Vitamin D deficiency, unspecified; E53.9 Vitamin B deficiency, unspecified; M19.91 Primary osteoarthritis, unspecified site; E66.09 Other obesity due to excess calories; Z87.891 Personal history of nicotine dependence
CPT/HCPCS: 99213; A9270; G0463

== ENCOUNTER 2024-09-28 07:59 | Outpatient (CLI) | payer MEDICARE, SELFPAY ==
--- OUTSIDE RECORDS SUMMARY | 2024-09-28 08:17 | XMS_ITS | Clinical Summary ---
Author Organization [facility] Address [address] [place] [address] Care Team Providers Care Coordinator Of Rehabilitation Services Name Role Phone Patricia Smith MD Primary Care Provider + Source Comments [facility],non-owned Affiliates and Associated Physician Practices is amultiple site organization consisting of ambulatory clinics and hospital sitesin [place], [place], [place] and [place]. This disclosure is being madepursuant to the Care Everywhere program and may not contain all information available regarding this patient. Last updated 17.[facility] Immunizations Immunization Administration Dates Next Due INFLUENZA VACCINE, HIGH-DOSE , QUADR. 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
--- OUTSIDE RECORDS SUMMARY | 2024-09-28 08:17 | XMS_ITS | Clinical Summary ---
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
[2024-09-28 08:42] LABS: Alanine Aminotransferase 17 U/L (6-35); Albumin Level 4.2 g/dL (3.5-5.1); Alkaline Phosphatase 69 U/L (38-126); Anion Gap 6 mmol/L (4-12); Aspartate Amino Transferase 33 U/L (14-36); Bilirubin,Total 0.6 mg/dL (0.2-1.3); Blood Urea Nitrogen 18 mg/dL (7-17); Calcium 10.0 mg/dL (8.4-10.2); Carbon Dioxide 29 mmol/L (22-30); Chloride 104 mmol/L (98-107); Estimated Glomerular Filt Rate > 60; Glucose 99 mg/dL (65-110); Potassium 4.3 mmol/L (3.4-5.0); Sodium 139 mmol/L (137-145); Total Protein 7.3 g/dL (6.3-8.2)
[2024-09-28 08:48] LABS: Hemoglobin A1C 6.1 % (<5.7)
[2024-09-28 10:06] LABS: Vitamin B12 > 1000.0 pg/mL (239-931)
== END 2024-09-28 08:00 | disposition home or self-care (01) ==
PROVIDERS: PCP Family Medicine; Visit Provider Student in an Organized Health Care Education/Training Program
DX: R73.03 Prediabetes (principal); R53.83 Other fatigue; I10 Essential (primary) hypertension
CPT/HCPCS: 36415; 80053; 82607; 83036

== ENCOUNTER 2024-10-18 07:59 | Outpatient (CLI) | payer MEDICARE, SELFPAY ==
--- OUTSIDE RECORDS SUMMARY | 2024-10-18 08:13 | XMS_ITS | Clinical Summary ---
Author Organization [facility] Address [address] [place] [address] Care Team Providers Care Health Policy Nurse Name Role Phone Patricia Smith MD Primary Care Provider + Source Comments [facility],non-owned Affiliates and Associated Physician Practices is amultiple site organization consisting of ambulatory clinics and hospital sitesin [place], [place], [place] and [place]. This disclosure is being madepursuant to the Care Everywhere program and may not contain all information available regarding this patient. Last updated 17.[facility] Immunizations Immunization Administration Dates Next Due INFLUENZA VACCINE, HIGH-DOSE , QUADR. 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
--- OUTSIDE RECORDS SUMMARY | 2024-10-18 08:13 | XMS_ITS | Clinical Summary ---
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
--- NOTE | 2024-11-09 08:43 | WPDSLEEPSTUD ---
Sleep Study Date of Study: 10/18/24 Ordering Provider: Cinthya Sandoval MD Interpreting Physician: Tayler Zavala DO Sleep Study Type: ASV Height: 1.52 m Weight: 77.791 kg Body Mass Index: 33.5 Neck Circumference (inches): 18 Cooper: 6 Reason for Sleep Study The patient is currently on ASV: EPAP 6, min PS 3, max PS 15. Compliance data from 06/22/2024-09/19/2024 showed a residual AHI of 1.7 with 99% use greater than 4 hours and no significant leak. Patient states that sleep is not refreshing. Sleep History 06/02/2015: Polysomnogram showed overall AHI of 22.1 with desaturation down to 84% 06/21/2015: CPAP Titration starting from 5 cm H2O-->14 cm H2O. Inadequate titration 07/28/2015: BPAP Titration from 11/6 cm H2O -->17/12 cm H2O showed treatment emergent CSA 11/06/2015: ASV Titration: 15/3/10 cm H2O (Max PS/ Min PS/ EPAP) --> 15/3/6 cm H2O. 15/3/6 cm H2O with residual AHI of 2.6 and sleep efficiency of 93%. The patient is a 79-year-old female that had an ASV titration ordered by her coal weigher for evaluation treatment emergent sleep apnea. The patient denies awakening from sleep short of breath. She denies awakening at night with heartburn, belching or cough. She denies snoring loudly enough that others complain. She denies having trouble breathing throughout the night. She denies gasping for air throughout the night. She occasionally sweats excessively at night. She denies having heart palpitations or irregular heartbeats during the night. She frequently falls asleep during the day but never while driving. She denies sleep paralysis and cataplexy. He rarely has vivid dreamlike scenes upon awakening or falling asleep. She denies feeling afraid of going to sleep. She denies having nightmares. She rarely remembers her dreams. She rarely feels sad or depressed. She occasionally has anxiety. She denies noticing parts of her body jerk. She denies kicking during the night. She denies having crawling and aching feelings in her legs and denies having leg pain during the night. She denies grinding her teeth during sleep and denies awakening with morning jaw pain. She is frequently bothered by pain during the day but never awakened by pain during the night. She denies waking up feeling stiff in the morning. She constantly wakes up with sore or achy muscles. She denies waking up with pain in the neck, spine or other joints. He goes to bed at 10:00 p.m. every night. It takes her 15 minutes to fall asleep. She wakes up 1-2 times throughout the night for unknown reasons and it can takes up or hours for her to fall back asleep. She wakes up at 7:30 a.m. every morning. She typically gets 6-8 hours of sleep per night. She will stay in bed for 3-1/2 hours after waking up in the morning. She currently lives with her son and granddaughter. He denies consuming any caffeinated beverages within 2 hours of bedtime. She denies engaging in physical exercise before bedtime. She denies reading before falling asleep. She will watch television before falling asleep. He will occasionally take a nap in the afternoon or the evening and is refreshing. She has 1/2 of a caffeinated beverage per day. She quit smoking cigarettes 25 years ago. She denies alcohol and recreational drug use. [facility] Past Medical History Medical History Vitamin D deficiency Vitamin B deficiency Right hip pain Right elbow pain Residual hemorrhoidal skin tags Psychophysiological insomnia Primary generalized (osteo)arthritis Pre-diabetes Postmenopausal Perianal irritation Paresthesia and pain of both upper extremities Palpitations with regular cardiac rhythm Pain and swelling of right ankle Non morbid obesity due to excess calories Neuropathy Myalgia Mixed hyperlipidemia Lumbar spondylosis Low back pain radiating to both legs Impaired fasting glucose Hemorrhoids without complication GERD without esophagitis Fall down steps Dysphagia as late effect of cerebral aneurysm Dietary counseling and surveillance (11/12/18) Cubital tunnel syndrome on left Counseling for living will Chronic fatigue Chest pain in adult Cervical spondylosis with radiculopathy Bronchitis Benign essential HTN Atherosclerosis of [place] coronary artery of [place] heart without angina pectoris Anxiety Allergic rhinitis, unspecified Allergic rhinitis due to pollen Acute recurrent maxillary sinusitis Acute non-recurrent maxillary sinusitis Acute non-recurrent frontal sinusitis Abnormal stress ECG with treadmill Sciatica Central sleep apnea Borderline diabetes mellitus Hyperlipidemia MDD (major depressive disorder), recurrent episode, moderate Complex sleep apnea syndrome History of tobacco abuse Hypertension Family History Family History Father Family history of malignant neoplasm of stomach Patient's father is Family history of throat cancer Mother Family history of lung cancer Patient's mother is Family history of malignant neoplasm of brain Sibling Diabetes mellitus Family history of blood dyscrasia Other Family history of alcoholism Social History Social History Social History: Caffeine-coffee Smoking packs per day: 0 Smoking cigarettes per day: 0.0 Years smoked: 20 Smoking pack-years: 0.00 Smoking status: Former smoker Tobacco type: cigarettes Second hand tobacco smoke exposure: No Smoking end date: 02/10/99 Alcohol intake: never Substance use: never Substance use type: does not use Do You Feel Safe in your Home?: Yes Lack of Transportation: No Lack of Food: Never True Current Housing: I Have Housing Concerned About Future Housing: No Difficulty Paying Gas/Electric Bills: No Difficulty Paying for Meds: No Currently Unemployed: No Education: Trade/Vocational Certificate Difficulty w/ Childcare or Family Care: No Living arrangements: with family Additional living arrangements comments: Pt son and granddaughter live with her. Occupation/Education: retired Gender identity (if verbalized by the patient): Female Sexual Orientation (if Verbalized by the Patient): Straight or Heterosexual Spiritual care concerns: No Medications Home Medications ?Medication ?Instructions ?Recorded ?Confirmed ?Type psyllium husk 0.52 gram capsule 0.52 gm PO BID 01/25/19 10/29/24 History (Daily Fiber) famotidine 20 mg tablet (Pepcid) 10 mg PO QHS PRN 11/07/22 10/29/24 History fluticasone propionate 50 2 spray intranasal BID #16 mL 10/15/24 10/29/24 Rx mcg/actuation nasal spray,suspension (Flonase Allergy Relief) buspirone 7.5 mg tablet 7.5 mg PO TID #90 tabs 09/19/25 09/19/25 Rx hydroxyzine pamoate 25 mg capsule 25 mg PO TID PRN nausea and 10/29/24 10/29/24 Rx vomiting #60 caps Sleep Procedure A full night ASV titration using the [email or web address] multi-channel system recorded the standard physiologic parameters including EEG, EOG, submentalis EMG, anterior tibialis EMG, EKG, body position, nasal and oral airflow using nasal pressure sensor and thermistor.? Respiratory parameters of chest and abdominal movements were recorded with Respiratory Inductance Plethysmography belts. Oxygen saturation was recorded by pulse oximetry. Video monitoring was also performed. Sleep stages, periodic limb movements, and EEG arousals were scored in 30 second epochs according to the criteria of the AASM Scoring Manual. The Apnea-Hypopnea Index was calculated using [facility] guidelines for definition of hypopnea with 4% O2 desaturations while scoring respiratory events. Sleep Architecture The total recording time was 453.5 minutes.? The total sleep time was 330.5 minutes. Sleep latency was 49.3 minutes. REM latency was 130.5 minutes. Sleep efficiency was 72.9%. The patient had 36 awakenings for an awakening index of 6.5. Wake after Sleep Onset time was 73.5 minutes. The patient spent 55.0 minutes, 16.6% of total sleep time in Stage N1. The patient spent 219.5 minutes, 66.4% in Stage N2. The patient spent 0.0 minutes, 0.0% in Stage N3. The patient spent 56.0 minutes, 16.9% in Stage REM. Respiratory Analysis The patient had 25 hypopneas for an overall Apnea Hypopnea Index of 4.5 events per hour. The REM Apnea Hypopnea Index was 2.1. The NREM Apnea Hypopnea Index was 5.0. The patient had a Central Apnea Hypopnea Index of 0. There was no evidence of Noé-Rondon Respirations. The patient was titrated at pressures ranging from 5/3/15 (EPAP/Min PS/Max PS) cm H20 up to 6/4/15 (EPAP/Min PS/Max PS). The patient was able to fall asleep starting on ASV 5/3/15 (EPAP/Min PS/Max PS) cm H2O. The patient was able to achieve REM sleep starting on ASV 6/3/15 (EPAP/Min PS/Max PS) cm H2O. On ASV 6/3/15 cm H2O (EPAP/Min PS/Max PS), the patient spent 182.5 minutes in NREM and 56 minutes in REM with 12 hypopneas, resulting in an AHI of 3.0. The patient had a sleep efficiency of 80.4% on this pressure setting. Arousals There were 124 total arousals for an arousal index of 22.5. There were 60 spontaneous arousals for an index of 10.9. ?There were 7 arousals due to respiratory events for an index of 1.3. There were 42 arousals due to periodic limb movements for an index of 7.6.? There were 15 arousals due to isolated limb movements for an index of 2.7. Periodic Limb Movements The patient had 39 isolated limb movements with an index of 7.1. The patient had 525 periodic limb movements with index of 95.3, which is elevated (normal < 15). Patient had a total of 564 limb movements with a total limb movement index of 102.4. Oximetry Data The patient had an average oxygen saturation of 90.8% in sleep with a minimum oxygen saturation of 83.0% and a maximum oxygen saturation of 96.0%. The patient had 32 oxygen desaturations that were 4% or greater resulting in an Oxygen Desaturation Index of 5.8.? The patient spent 49.3 minutes, 10.9% of total sleep time with an oxygen saturation below 88%. Snoring Profile Light snoring was present throughout the study. Cardiac Profile The EKG showed normal sinus rhythm. No arrhythmias or premature beats were seen. The patient had an average pulse rate of 66.1 bpm with a minimum pulse rate of 59.0 bpm and a maximum pulse rate of 75.0 bpm. ? EEG Profile No signs of seizure activity seen. Alpha intrusion was present throughout the study. Assessment and Plan Assessment and Plan (1) Complex sleep apnea syndrome: Code(s): G47.31 - Primary central sleep apnea Status: Acute Assessment and Plan: The patient was titrated at pressures ranging from 5/3/15 (EPAP/Min PS/Max PS) cm H20 up to 6/4/15 (EPAP/Min PS/Max PS). The optimal pressure setting found during the study is the current pressure setting of her machine. I recommend that the patient stay on ASV 6/3/15 cm H2O (EPAP/Min PS/Max PS). Alpha intrusion was present throughout the study. Alpha intrusion, also known as alpha-delta sleep, is an EEG finding where alpha waves are present during NREM sleep. Alpha waves are typically present in wake. While alpha intrusion can be seen in a small subset of healthy individuals, it is often found in patients with depression, fibromyalgia, chronic pain and other sleep disorders. Clinically, alpha intrusion presents as non-restorative sleep. Treatment of alpha intrusion is directed towards the underlying cause. (2) PLMD (periodic limb movement disorder): Code(s): G47.61 - Periodic limb movement disorder Status: Acute Assessment and Plan: The patient had a significant number of limb movements during the study with the majority being periodic in nature. The patient's sleep history does not suggest Restless Leg Syndrome. Approximately 10% of the periodic limb movements caused arousals in the patient's sleep. I recommend that the patient have a serum ferritin drawn for evaluation of iron deficiency anemia. If the patient has a serum ferritin less than 75 ng/mL, I recommend starting a daily iron supplement and a Vitamin C supplement for better absorption. If the serum ferritin is greater than 75 ng/mL, I recommend starting a dopamine agonist and titrating the dose until symptoms resolve. There are nonpharmacological methods to treat limb movements including daily exercise, stretching calf muscles before bed, avoiding excessive amounts of caffeine and alcohol, vitamin B supplementation, magnesium lotion massaged into legs before bed, and use of a weighted blanket. Data The data obtained during this sleep study is adequate for interpretation. Certification This sleep study has been reviewed by a board certified sleep medicine physician.
[2024-11-11 10:17] VITALS: BMI 33.5
== END 2024-10-19 07:15 | disposition home or self-care (01) ==
LOC: ANHCSM 07:59
PROVIDERS: PCP Family Medicine; Visit Provider Internal Medicine Critical Care Medicine
DX: G47.31 Primary central sleep apnea (principal); G47.61 Periodic limb movement disorder
CPT/HCPCS: 95811

== ENCOUNTER 2024-10-22 15:51 | Emergency (ER) | payer MEDICARE, SELFPAY ==
--- NOTE | 2024-10-22 15:56 | ECG_ITS ---
Test Date: 2024-10-22 16:17:44 Measurements Intervals [place] Rate: 83 P: 56 PA: 154 QRS: 41 QRSD: 134 T: 8 QT: 416 QTc: 491 Interpretive Statements SINUS RHYTHM INDETERMINATE AXIS RIGHT BUNDLE BRANCH BLOCK [120+ ms QRS DURATION, UPRIGHT V1, 40+ ms S IN I/aVL/V4/V5/V6] ABNORMAL ECG No previous ECG available for comparison Electronically Signed On 10-23-2024 12:13:30 CDT by Alfa Muniz M.D.
[2024-10-22 16:02] VITALS: BP 140/69; PULSE 88; RESP 16; TEMP 36.4; O2SAT 99
--- NOTE | 2024-10-22 16:58 | ED.SOB ---
HPI - SOB/Dyspnea General Chief Complaint: Shortness of Breath/Dyspnea Stated Complaint: SOB Time Seen by Provider: 10/22/24 16:40 Source: patient and RN notes reviewed Mode of arrival: ambulatory Limitations: no limitations History of Present Illness HPI Narrative: 79-year-old female presents Express Care complaining of shortness of breath the last couple days. Patient does report feeling dizzy at times. Patient denies any chest pain, loss of consciousness, nausea, vomiting, diarrhea, jaw pain, upper respiratory symptoms, cough, fever, congestion, body aches, chills, or any other symptoms. Patient denies any significant cardiac history or pulmonary history. Patient says she does wear a BiPAP at night for VILMA. Patient denies any recent travel, history of blood clots, or any recent surgeries. Patient says he feels short of breath all the time even at rest and feels like she cannot take a deep breath. Patient tried some [id number] anti anxiety medication without relief. Patient has not take any blood thinners. Related Data Home Medications ?Medication ?Instructions ?Recorded ?Confirmed ?Last Taken ?Type psyllium husk 0.52 gram capsule 0.52 gm PO BID 01/25/19 10/15/24 Unknown History (Daily Fiber) famotidine 20 mg tablet (Pepcid) 10 mg PO QHS PRN 11/07/22 10/15/24 Unknown History Allergies Allergy/AdvReac Type Severity Reaction Status Date / Time ezetimibe (From Zetia) Allergy Muscle Pain Verified 10/22/24 17:53 AMIE Inhibitors AdvReac Unknown Unknown Verified 10/22/24 17:53 fenofibrate AdvReac Unknown myalgia Verified 10/22/24 17:53 Ufyhloa-UPH-SgF Reductase AdvReac Unknown Unknown Verified 10/22/24 17:53 Inhibitor (Dzobuhm-Wwo-Kjb Reductase Inhibitor) Review of Systems Review of Systems: CONSTITUTIONAL: Denies fever, chills, or sweats. EYES: Denies visual changes, redness, or discharge. ENT: Denies rhinorrhea, congestion, sore throat, or otalgia. CARDIOVASCULAR: Denies chest pain, palpitations, orthopnea, lightheadedness, or edema. Positive for dizziness. RESPIRATORY: Denies cough or wheezing. Positive for dyspnea at rest. GASTROINTESTINAL: Denies abdominal pain, nausea, vomiting, or diarrhea. GENITOURINARY: Denies dysuria or hematuria. SKIN: Denies rash or itching. MUSCULOSKELETAL: Denies back pain, joint pain, or myalgia. NEUROLOGIC: Denies headache, numbness, or weakness. PSYCHIATRIC: Denies anxiety or depression. All other systems reviewed are negative, except as documented in HPI. [facility] Past Medical History Medical History Vitamin D deficiency Vitamin B deficiency Right hip pain Right elbow pain Residual hemorrhoidal skin tags Psychophysiological insomnia Primary generalized (osteo)arthritis Pre-diabetes Postmenopausal Perianal irritation Paresthesia and pain of both upper extremities Palpitations with regular cardiac rhythm Pain and swelling of right ankle Non morbid obesity due to excess calories Neuropathy Myalgia Mixed hyperlipidemia Lumbar spondylosis Low back pain radiating to both legs Impaired fasting glucose Hemorrhoids without complication GERD without esophagitis Fall down steps Dysphagia as late effect of cerebral aneurysm Dietary counseling and surveillance (11/12/18) Cubital tunnel syndrome on left Counseling for living will Chronic fatigue Chest pain in adult Cervical spondylosis with radiculopathy Bronchitis Benign essential HTN Atherosclerosis of [place] coronary artery of [place] heart without angina pectoris Anxiety Allergic rhinitis, unspecified Allergic rhinitis due to pollen Acute recurrent maxillary sinusitis Acute non-recurrent maxillary sinusitis Acute non-recurrent frontal sinusitis Abnormal stress ECG with treadmill Sciatica Central sleep apnea Borderline diabetes mellitus Hyperlipidemia MDD (major depressive disorder), recurrent episode, moderate Complex sleep apnea syndrome History of tobacco abuse Hypertension Family History Family History Father Family history of malignant neoplasm of stomach Patient's father is Family history of throat cancer Mother Family history of lung cancer Patient's mother is Family history of malignant neoplasm of brain Sibling Diabetes mellitus Family history of blood dyscrasia Other Family history of alcoholism Social History Social History Social History: Caffeine-coffee Smoking packs per day: 0 Smoking cigarettes per day: 0.0 Years smoked: 20 Smoking pack-years: 0.00 Smoking status: Former smoker Tobacco type: cigarettes Second hand tobacco smoke exposure: No Smoking end date: 02/10/99 Alcohol intake: never Substance use: never Substance use type: does not use Do You Feel Safe in your Home?: Yes Lack of Transportation: No Lack of Food: Never True Current Housing: I Have Housing Concerned About Future Housing: No Difficulty Paying Gas/Electric Bills: No Difficulty Paying for Meds: No Currently Unemployed: No Education: Trade/Vocational Certificate Difficulty w/ Childcare or Family Care: No Living arrangements: with family Additional living arrangements comments: Pt son and granddaughter live with her. Occupation/Education: retired Gender identity (if verbalized by the patient): Female Sexual Orientation (if Verbalized by the Patient): Straight or Heterosexual Spiritual care concerns: No Comments At the time of my signature, I reviewed and agree with the nursing past medical, surgical, social, and family history. There is no relevant family history pertinent to the patient complaint. Exam Narrative: GENERAL: This is a well-nourished, well-developed adult, in no apparent distress. They are non ill-appearing, nontoxic appearing. HEAD: normocephalic, atraumatic. EYES: Sclera clear/white. Conjunctiva normal. Vision is grossly intact. Extraocular movements intact EARS: External ears normal, auditory canals clear and without drainage, TMs normal without perforation. Hearing grossly intact. NOSE: External nose normal with no obvious nasal discharge, nasal turbinates without redness, no rhinorrhea. THROAT: Mucous membranes moist, posterior pharynx clear, without erythema or swelling. Uvula midline. NECK: Neck supple, non-tender without lymphadenopathy, masses or thyromegaly. CARDIOVASCULAR: Regular rate and rhythm without murmurs, gallops, or rubs. RESPIRATORY: Clear to auscultation. Breath sounds equal bilaterally. No wheezes, rales, or rhonchi. Respiratory rate normal, respiratory effort nonlabored, no respiratory distress SKIN: warm, Dry, intact with no suspicious lesions or rash, good texture and turgor. NEURO: awake, alert, and oriented to person, place and time. There were no obvious focal neurologic abnormalities. EXTREMITIES: No joint tenderness, effusion, or edema noted. Course Course Emergency Course: Portions of this record may have been created with voice recognition software Level of Care: Express Care Visit Vital Signs Vital signs: Vital Signs Temperature 97.6 F 10/22/24 16:02 Pulse Rate 88 10/22/24 16:02 Respiratory Rate 16 10/22/24 16:02 Blood Pressure 140/69 10/22/24 16:02 Pulse Oximetry 99 10/22/24 16:02 Temperature 97.6 F 10/22/24 16:02 Pulse Rate 88 10/22/24 16:02 Respiratory Rate 16 10/22/24 16:02 Blood Pressure 140/69 10/22/24 16:02 Pulse Oximetry 99 10/22/24 16:02 Oxygen Delivery Room Air 10/22/24 16:15 Reviewed Transfer Transfered to: [facility] Transportation: Other (Private private vehicle) Transfer rationale: Patient requires higher level care, shortness of breath at rest, further evaluation management, possible lab work and imaging. Accepting physician: Dr. Osei MDM - SOB/Dyspnea MDM Narrative Medical decision making narrative: EKG is a sinus rhythm with a right bundle branch block. No ST elevation or depression noted. Vital signs are stable. Normal oxygen saturations. No tachycardia. Wells criteria of 3. Perc score of 1. Physical exam is unremarkable. Lungs Sounds are clear to to auscultation. No evidence of infection. Patient has no significant risk factors for blood clots however given her age and symptoms cannot exclusively rule out blood clot. Given patient's symptoms, it is recommend the patient seek a higher level care and proceed immediately to the emergency department. Patient is agreeable to go to [facility]. Called over to [facility] and spoke to Dr. Osei was wear this patient accepted the patient for transfer. Patient advised to remain NPO and proceed immediately to the ER. Offered patient EMS and she declined she will take herself via private vehicle. Patient hemodynamically stable for transfer to take herself by private vehicle. Differential Diagnosis Differential diagnosis: Likely congestive heart failure, community acquired pneumonia and pulmonary embolism ECG Data EKG #1: Attestation: I personally reviewed and interpreted this ECG as follows: ECG completion date: 10/22/24 ECG completion time: 16:17 Prior ECG tracings: not available for review EKG Interpretation: normal rate, sinus rhythm, no ectopy, non-specific ST changes, RBBB, normal QT and other (Intermediate axis) Critical Care Time Critical Care Time Critical Care Time: No Discharge Plan Discharge Clinical Impression: Shortness of breath Patient Disposition: Acute Care Hospital Condition: Stable Patient Language: Bol[place]ian Prescriptions: No Action famotidine [Pepcid] 20 mg tablet 10 mg PO QHS PRN psyllium husk [Daily Fiber] 0.52 gram capsule 0.52 gm PO BID fluticasone propionate [Flonase Allergy Relief] 50 mcg/actuation spray,suspension 2 spray intranasal BID Qty: 16 3RF Rx Instructions: administer into each nostril. Aim back/up/out hydroxyzine pamoate 25 mg capsule 25 mg PO TID PRN (Reason: nausea and vomiting) Qty: 20 0RF Follow-up/Referrals: Kassandra Saenz PA-C [Primary Care Provider, Family Practice] Time of Disposition: 17:05
== END 2024-10-22 17:03 | disposition short-term general hospital (02) ==
PROVIDERS: PCP Student in an Organized Health Care Education/Training Program
DX: R06.02 Shortness of breath (principal); I10 Essential (primary) hypertension; I25.10 Atherosclerotic heart disease of native coronary artery without angina pectoris; R73.03 Prediabetes; G62.9 Polyneuropathy, unspecified; E78.2 Mixed hyperlipidemia; K21.9 Gastro-esophageal reflux disease without esophagitis; E78.5 Hyperlipidemia, unspecified; Z87.891 Personal history of nicotine dependence
CPT/HCPCS: 93005; 99212; G0463

== ENCOUNTER 2024-10-22 17:30 | Emergency (ER) | payer MEDICARE, SELFPAY ==
--- NOTE | ~2024-10-22 | XR_ITS ---
EXAMINATION: XR chest 2V 10/22/2024 18:46 INDICATION: Shortness of breath PROCEDURE: 2 view chest COMPARISON: Comparison to multiple prior studies sequentially, with oldest reviewed study dated 05/01/2009. FINDINGS: The lungs are clear. The cardiomediastinal silhouette is within normal limits. There are no pleural effusions. There is no pneumothorax suspected. IMPRESSION: 1: NO ACUTE CARDIOPULMONARY DISEASE. Reviewed, dictated and finalized at location O.
--- NOTE | ~2024-10-22 | CT_ITS ---
EXAMINATION: CT BRAIN W/O DATE: 10/22/2024 18:41 INDICATION: Brain following TECHNIQUE: Computed tomography (CT) of the head was performed without intravenous contrast. The dose-length product was 605.33 mGy-cm. Automated exposure control and iterative reconstruction technique were employed. COMPARISON: No prior studies for comparison. FINDINGS: Normal brain parenchymal volume for age. Normal stephens-white differentiation. No acute intracranial hemorrhage, infarction, mass or mass effect. No ventriculomegaly or midline shift. Midline sagittal images demonstrate a normal corpus callosum, craniovertebral junction and sella turcica. Basilar cisterns are patent. Paranasal sinuses and mastoids are pneumatized. No depressed skull fractures. IMPRESSION: 1. No acute intracranial abnormality. Reviewed, dictated and finalized at location O.
[2024-10-22 17:51] VITALS: BP 156/94; PULSE 88; RESP 16; TEMP 36.4; O2SAT 98
--- NOTE | 2024-10-22 18:18 | ED.SOB ---
HPI - SOB/Dyspnea General Chief Complaint: Shortness of Breath/Dyspnea <Dahlia Glover PA-C - Last Filed: 10/22/24 18:26> Stated Complaint: SOB <Dahlia Glover PA-C - Last Filed: 10/22/24 18:26> Time Seen by Provider: 10/22/24 18:18 <Dahlia Glover PA-C - Last Filed: 10/22/24 18:26> Focused HPI: Patient is a 79 y/o female, with PMH of VILMA on bipap at night, who presents to the ED with c/o SOB. Patient reports having increased SOB over the past couple days. She notes she recently had a sleep study on Friday and was told she may need a new machine for increased pressure than her bipap can provide. She states she did not wear her bipap last night because she was unsure if she was supposed to continue it. She states she often experiences brain fog, most often occurring 1 hour after waking up. She states this has been ongoing for several months, but has been worse recently. Reports sinus congestion. Denies cough. Denies fevers, cough, ble pain or swelling. GENERAL: Well-appearing, obese with BMI of 32.7, and in no acute distress. HEAD: Normocephalic, atraumatic. CHEST: Clear to auscultation. ?No respiratory distress. HEART: Regular rate and rhythm.? NEURO: ?Alert and oriented x3. PSYCHIATRIC: Anxious Patient screened in triage and initial orders placed.? ?Additional care and disposition to be based upon?diagnostic testing and treatment. <Dahlia Glover PA-C - Last Filed: 10/22/24 18:26> Source: patient <Dahlia Glover PA-C - Last Filed: 10/22/24 18:26> Mode of arrival: ambulatory <Dahlia Glover PA-C - Last Filed: 10/22/24 18:26> Limitations: no limitations <BRANDY Magallon Last Filed: 10/22/24 18:26> History of Present Illness HPI Narrative: Agree with HPI. <Guzman Tan MD - Last Filed: 10/22/24 20:46> Related Data Home Medications: Home Medications ?Medication ?Instructions ?Recorded ?Confirmed ?Last Taken ?Type psyllium husk 0.52 gram capsule 0.52 gm PO BID 01/25/19 10/15/24 Unknown History (Daily Fiber) famotidine 20 mg tablet (Pepcid) 10 mg PO QHS PRN 11/07/22 10/15/24 Unknown History <Dahlia Glover PA-C - Last Filed: 10/22/24 18:26> Allergies/Adverse Reactions: Allergies Allergy/AdvReac Type Severity Reaction Status Date / Time ezetimibe (From Zetia) Allergy Muscle Pain Verified 10/22/24 17:53 AMIE Inhibitors AdvReac Unknown Unknown Verified 10/22/24 17:53 fenofibrate AdvReac Unknown myalgia Verified 10/22/24 17:53 Mbwzmnz-SVH-QrZ Reductase AdvReac Unknown Unknown Verified 10/22/24 17:53 Inhibitor (Tcvhatn-Nvq-Roo Reductase Inhibitor) <Dahlia Glover PA-C - Last Filed: 10/22/24 18:26> Review of Systems Review of Systems: All systems reviewed & are unremarkable except as noted in HPI and below <Guzman Tan MD - Last Filed: 10/22/24 20:46> [facility] Past Medical History Medical History: Medical History Vitamin D deficiency Vitamin B deficiency Right hip pain Right elbow pain Residual hemorrhoidal skin tags Psychophysiological insomnia Primary generalized (osteo)arthritis Pre-diabetes Postmenopausal Perianal irritation Paresthesia and pain of both upper extremities Palpitations with regular cardiac rhythm Pain and swelling of right ankle Non morbid obesity due to excess calories Neuropathy Myalgia Mixed hyperlipidemia Lumbar spondylosis Low back pain radiating to both legs Impaired fasting glucose Hemorrhoids without complication GERD without esophagitis Fall down steps Dysphagia as late effect of cerebral aneurysm Dietary counseling and surveillance (11/12/18) Cubital tunnel syndrome on left Counseling for living will Chronic fatigue Chest pain in adult Cervical spondylosis with radiculopathy Bronchitis Benign essential HTN Atherosclerosis of [place] coronary artery of [place] heart without angina pectoris Anxiety Allergic rhinitis, unspecified Allergic rhinitis due to pollen Acute recurrent maxillary sinusitis Acute non-recurrent maxillary sinusitis Acute non-recurrent frontal sinusitis Abnormal stress ECG with treadmill Sciatica Central sleep apnea Borderline diabetes mellitus Hyperlipidemia MDD (major depressive disorder), recurrent episode, moderate Complex sleep apnea syndrome History of tobacco abuse Hypertension <Dahlia Glover PA-C - Last Filed: 10/22/24 18:26> Family History Family History: Family History Father Family history of malignant neoplasm of stomach Patient's father is Family history of throat cancer Mother Family history of lung cancer Patient's mother is Family history of malignant neoplasm of brain Sibling Diabetes mellitus Family history of blood dyscrasia Other Family history of alcoholism <Dahlia Glover PA-C - Last Filed: 10/22/24 18:26> Social History Social History: Social History Social History: Caffeine-coffee Smoking packs per day: 0 Smoking cigarettes per day: 0.0 Years smoked: 20 Smoking pack-years: 0.00 Smoking status: Former smoker Tobacco type: cigarettes Second hand tobacco smoke exposure: No Smoking end date: 02/10/99 Alcohol intake: never Substance use: never Substance use type: does not use Do You Feel Safe in your Home?: Yes Lack of Transportation: No Lack of Food: Never True Current Housing: I Have Housing Concerned About Future Housing: No Difficulty Paying Gas/Electric Bills: No Difficulty Paying for Meds: No Currently Unemployed: No Education: Trade/Vocational Certificate Difficulty w/ Childcare or Family Care: No Living arrangements: with family Additional living arrangements comments: Pt son and granddaughter live with her. Occupation/Education: retired Gender identity (if verbalized by the patient): Female Sexual Orientation (if Verbalized by the Patient): Straight or Heterosexual Spiritual care concerns: No <Dahlia Glover PA-C - Last Filed: 10/22/24 18:26> Exam Narrative: GENERAL: Well-appearing, well-nourished, and in no acute distress. HEAD: Normocephalic, atraumatic. ENT: Mucous membranes moist. CHEST: Clear to auscultation. No respiratory distress. HEART: Regular rate and rhythm. Normal peripheral pulses. ABDOMEN: Soft, nontender, nondistended. EXTREMITIES: Normal range of motion. No edema. SKIN: Warm, dry, no rash. NEURO: Alert and oriented x3. PSYCH: Normal mood and affect. <Guzman Tan MD - Last Filed: 10/22/24 20:46> Course Course Emergency Course: Discussed lab and imaging results. Patient appropriate for discharge home. I feel she has some significant anxiety and she feels similar. I will provide her with some Vistaril for home. She will follow-up with her PCP. <Guzman Tan MD - Last Filed: 10/22/24 20:46> Vital Signs Vital signs: Vital Signs Temperature 97.5 F L 10/22/24 17:51 Pulse Rate 88 10/22/24 17:51 Respiratory Rate 16 10/22/24 17:51 Blood Pressure 156/94 H 10/22/24 17:51 Pulse Oximetry 98 10/22/24 17:51 Temperature 97.5 F L 10/22/24 17:51 Pulse Rate 88 10/22/24 17:51 Respiratory Rate 16 10/22/24 17:51 Blood Pressure 156/94 H 10/22/24 17:51 Pulse Oximetry 98 10/22/24 17:51 <Dahlia Glover PA-C - Last Filed: 10/22/24 18:26> Vital Signs Temperature 97.5 F L 10/22/24 17:51 Pulse Rate 88 10/22/24 17:51 Respiratory Rate 16 10/22/24 17:51 Blood Pressure 156/94 H 10/22/24 17:51 Pulse Oximetry 98 10/22/24 17:51 Temperature 97.5 F L 10/22/24 17:51 Pulse Rate 88 10/22/24 17:51 Respiratory Rate 16 10/22/24 17:51 Blood Pressure 156/94 H 10/22/24 17:51 Pulse Oximetry 98 10/22/24 17:51 <Guzman Tan MD - Last Filed: 10/22/24 20:46> MDM - SOB/Dyspnea MDM Narrative Medical decision making narrative: MSE by GIUSEPPE in triage. <Dahlia Glover PA-C - Last Filed: 10/22/24 18:26> Lab Data Result diagrams: 10/22/24 18:29 10/22/24 18:29 <Dahlia Glover PA-C - Last Filed: 10/22/24 18:26> Labs: Lab Results 10/22/24 Range/Units 18:29 WBC 8.0 (4.5-10.0) K/mm3 RBC 4.98 (4.2-5.4) M/mm3 Hgb 14.2 (12.0-15.0) g/dL Hct 43.3 (37.0-47.0) % MCV 86.9 (80-100) fl MCH 28.5 (26-34) pg MCHC 32.8 (32-36) g/dl RDW 13.5 (11.5-14.5) % Plt Count 249 (150-375) k/mm3 MPV 10.6 H (7.4-10.4) fl Immature Gran % (Auto) 0.3 (0-0.5) % Neut % (Auto) 69.7 (45.5-73.1) % Lymph % (Auto) 19.6 (18.3-44.2) % [place] % (Auto) 8.8 H (2.6-8.5) % Eos % (Auto) 1.1 (0-4.4) % Baso % (Auto) 0.5 (0.2-1.2) % Lymph # (Auto) 1.57 (0.9-3.2) K/mm3 [place] # (Auto) 0.7 H (0.1-0.6) K/mm3 Eos # (Auto) 0.1 (0-0.3) K/mm3 Baso # (Auto) 0.0 (0.0-0.1) K/mm3 Abs Immat Gran (auto) 0.02 (0.00-0.031) K/mm3 Absolute Neuts (auto) 5.6 (1.3-6.7) K/mm3 Absolute Nucleated RBC 0.000 (0.0-0.012) K/mm3 Nucleated RBC % 0.0 (0.0-0.2) % PT 13.7 (11.1-14.7) Seconds INR 1.0 APTT 24.7 (22.3-36.8) Seconds D-Dimer 0.55 H (<0.48) ug/mL Sodium 137 (137-145) mmol/L Potassium 4.3 (3.4-5.0) mmol/L Chloride 107 (98-107) mmol/L Carbon Dioxide 23 (22-30) mmol/L Anion Gap 7 (4-12) mmol/L BUN 21 H (7-17) mg/dL Creatinine 0.80 (0.7-1.0) mg/dL Estim Creat Clear Calc 46 ml/min Estimated GFR > 60 (59 - ) Glucose 100 (65-110) mg/dL Calcium 9.8 (8.4-10.2) mg/dL Total Bilirubin 0.9 (0.2-1.3) mg/dL AST 34 (14-36) U/L ALT 17 (6-35) U/L Alkaline Phosphatase 78 (38-126) U/L Troponin I < 0.012 (0.000-0.034) ng/mL NT-Pro-B Natriuret Pep 70 (19.9-100) pg/mL Total Protein 7.5 (6.3-8.2) g/dL Albumin 4.5 (3.5-5.1) g/dL <Dahlia Glover PA-C - Last Filed: 10/22/24 18:26> Lab Results 10/22/24 Range/Units 18:29 WBC 8.0 (4.5-10.0) K/mm3 RBC 4.98 (4.2-5.4) M/mm3 Hgb 14.2 (12.0-15.0) g/dL Hct 43.3 (37.0-47.0) % MCV 86.9 (80-100) fl MCH 28.5 (26-34) pg MCHC 32.8 (32-36) g/dl RDW 13.5 (11.5-14.5) % Plt Count 249 (150-375) k/mm3 MPV 10.6 H (7.4-10.4) fl Immature Gran % (Auto) 0.3 (0-0.5) % Neut % (Auto) 69.7 (45.5-73.1) % Lymph % (Auto) 19.6 (18.3-44.2) % [place] % (Auto) 8.8 H (2.6-8.5) % Eos % (Auto) 1.1 (0-4.4) % Baso % (Auto) 0.5 (0.2-1.2) % Lymph # (Auto) 1.57 (0.9-3.2) K/mm3 [place] # (Auto) 0.7 H (0.1-0.6) K/mm3 Eos # (Auto) 0.1 (0-0.3) K/mm3 Baso # (Auto) 0.0 (0.0-0.1) K/mm3 Abs Immat Gran (auto) 0.02 (0.00-0.031) K/mm3 Absolute Neuts (auto) 5.6 (1.3-6.7) K/mm3 Absolute Nucleated RBC 0.000 (0.0-0.012) K/mm3 Nucleated RBC % 0.0 (0.0-0.2) % PT 13.7 (11.1-14.7) Seconds INR 1.0 APTT 24.7 (22.3-36.8) Seconds D-Dimer 0.55 H (<0.48) ug/mL Sodium 137 (137-145) mmol/L Potassium 4.3 (3.4-5.0) mmol/L Chloride 107 (98-107) mmol/L Carbon Dioxide 23 (22-30) mmol/L Anion Gap 7 (4-12) mmol/L BUN 21 H (7-17) mg/dL Creatinine 0.80 (0.7-1.0) mg/dL Estim Creat Clear Calc 46 ml/min Estimated GFR > 60 (59 - ) Glucose 100 (65-110) mg/dL Calcium 9.8 (8.4-10.2) mg/dL Total Bilirubin 0.9 (0.2-1.3) mg/dL AST 34 (14-36) U/L ALT 17 (6-35) U/L Alkaline Phosphatase 78 (38-126) U/L Troponin I < 0.012 (0.000-0.034) ng/mL NT-Pro-B Natriuret Pep 70 (19.9-100) pg/mL Total Protein 7.5 (6.3-8.2) g/dL Albumin 4.5 (3.5-5.1) g/dL <Guzman Tan MD - Last Filed: 10/22/24 20:46> ABG Data ABG results: 10/22/24 19:16 Puncture Site Right radial ABG pH 7.405 ABG pCO2 41.6 ABG pO2 90.5 ABG PO2/FiO2 Ratio 4.31 ABG HCO3 25.5 ABG O2 Saturation 97.0 ABG O2 Content 20.3 ABG Base Excess 0.7 A-a Gradient 9.4 Oxyhemoglobin 96.1 Total Hemoglobin 15.0 O2 Delivery Device Not Reportable O2 Liters/Min Not Reportable FiO2 21 <Dahlia Glover PA-C - Last Filed: 10/22/24 18:26> 10/22/24 19:16 Puncture Site Right radial ABG pH 7.405 ABG pCO2 41.6 ABG pO2 90.5 ABG PO2/FiO2 Ratio 4.31 ABG HCO3 25.5 ABG O2 Saturation 97.0 ABG O2 Content 20.3 ABG Base Excess 0.7 A-a Gradient 9.4 Oxyhemoglobin 96.1 Total Hemoglobin 15.0 O2 Delivery Device Not Reportable O2 Liters/Min Not Reportable FiO2 21 <Guzman Tan MD - Last Filed: 10/22/24 20:46> Imaging Data Radiologist's impression: ITS Impressions Chest X-Ray 10/22/24 18:57 IMPRESSION: 1: NO ACUTE CARDIOPULMONARY DISEASE. Head CT 10/22/24 19:00 IMPRESSION: 1. No acute intracranial abnormality. <Guzman Tan MD - Last Filed: 10/22/24 20:46> ECG Data EKG #1: ECG completion date: 10/22/24 <Guzman Tan MD - Last Filed: 10/22/24 20:46> ECG completion time: 18:26 <Guzman Tan MD - Last Filed: 10/22/24 20:46> EKG Interpretation: normal rate (82), sinus rhythm, non-specific ST changes and RBBB <Guzman Tan MD - Last Filed: 10/22/24 20:46> Discharge Plan Discharge Clinical Impression: Anxiety <BRANDY Magallon Last Filed: 10/22/24 18:26> Patient Disposition: Home <Dahlia Glover PA-C - Last Filed: 10/22/24 18:26> Condition: Stable <Dahlia Glover PA-C - Last Filed: 10/22/24 18:26> Instructions: Anxiety (ED) <Dahlia Glover PA-C - Last Filed: 10/22/24 18:26> Additional Instructions: Please return to the emergency department if you develop severe and persistent chest pain, difficulty breathing, dizziness, leg swelling or if you are coughing up blood as these can be signs of a medical emergency. Please call your doctor for a follow up appointment to determine the need for further testing. <Dahlia Glover PA-C - Last Filed: 10/22/24 18:26> Patient Language: Chinese <Dahlia Glover PA-C - Last Filed: 10/22/24 18:26> Prescriptions: New hydroxyzine pamoate 25 mg capsule 25 mg PO TID PRN (Reason: nausea and vomiting) Qty: 20 0RF No Action famotidine [Pepcid] 20 mg tablet 10 mg PO QHS PRN psyllium husk [Daily Fiber] 0.52 gram capsule 0.52 gm PO BID fluticasone propionate [Flonase Allergy Relief] 50 mcg/actuation spray,suspension 2 spray intranasal BID Qty: 16 3RF Rx Instructions: administer into each nostril. Aim back/up/out <Dahlia Glover PA-C - Last Filed: 10/22/24 18:26> Follow-up/Referrals: Kassandra Saenz PA-C [Primary Care Provider, Family Practice] - 1 Week <Dahlia Glover PA-C - Last Filed: 10/22/24 18:26>
--- NOTE | 2024-10-22 18:23 | ECG_ITS ---
Test Date: 2024-10-22 18:26:50 Measurements Intervals [place] Rate: 82 P: 54 ID: [id number] QRS: -3 QRSD: 132 T: 0 QT: 404 QTc: 473 Interpretive Statements SINUS RHYTHM INDETERMINATE AXIS RIGHT BUNDLE BRANCH BLOCK [120+ ms QRS DURATION, UPRIGHT V1, 40+ ms S IN I/aVL/V4/V5/V6] ABNORMAL ECG Compared to ECG 10/22/2024 16:17:44 No significant changes Electronically Signed On 10-23-2024 12:15:42 CDT by Alfa Muniz M.D.
[2024-10-22 18:36] LABS: Hematocrit 43.3 % (37.0-47.0); Hemoglobin 14.2 g/dL (12.0-15.0); Immature Granulocyte Percent A 0.3 % (0-0.5); Lymphocytes Absolute Auto 1.57 K/mm3 (0.9-3.2); Mean Corpuscular HGB Conc 32.8 g/dl (32-36); Mean Corpuscular Hemoglobin 28.5 pg (26-34); Mean Corpuscular Volume 86.9 fl (80-100); Nucleated Red Blood Cells Absolute Auto 0.000 K/mm3 (0.0-0.012); Nucleated Red Blood Cells Perc 0.0 % (0.0-0.2); Platelet Count Result 249 k/mm3 (150-375); Red Blood Count 4.98 M/mm3 (4.2-5.4); White Blood Count 8.0 K/mm3 (4.5-10.0)
[2024-10-22 18:46] LABS: Alanine Aminotransferase 17 U/L (6-35); Albumin Level 4.5 g/dL (3.5-5.1); Alkaline Phosphatase 78 U/L (38-126); Anion Gap 7 mmol/L (4-12); Aspartate Amino Transferase 34 U/L (14-36); Bilirubin,Total 0.9 mg/dL (0.2-1.3); Blood Urea Nitrogen 21 mg/dL (7-17); Calcium 9.8 mg/dL (8.4-10.2); Carbon Dioxide 23 mmol/L (22-30); Chloride 107 mmol/L (98-107); Estimated CRCL calculation 46 ml/min; Estimated Glomerular Filt Rate > 60; Glucose 100 mg/dL (65-110); Potassium 4.3 mmol/L (3.4-5.0); Sodium 137 mmol/L (137-145); Total Protein 7.5 g/dL (6.3-8.2)
[2024-10-22 18:47] LABS: INR 1.0; Prothrombin Time 13.7 Seconds (11.1-14.7)
[2024-10-22 18:48] LABS: Partial Thromboplastin Time 24.7 Seconds (22.3-36.8)
[2024-10-22 18:58] LABS: NT Pro B Type Natriuretic Pept 70 pg/mL (19.9-100); Troponin I < 0.012 ng/mL (0.000-0.034)
[2024-10-22 19:27] LABS: Alveolar/Arterial O2 Gradient 9.4 mmHg; Fractional Inspired Oxygen 21 %; HCO3 ABG 25.5 mEq/l (22.0-26.0); Oxygen Content ABG 20.3 %vol (16.0-22.0); Oxygen Saturation ABG 97.0 % (95.0-100.0); PCO2 ABG 41.6 mmHg (35.0-45.0); PO2 ABG 90.5 mmHg (80.0-100.0); PO2 FiO2 Ratio Arterial Blood 4.31 %
[2024-10-22 19:30] LABS: Modified Allen's Test Pass; Site Drawn RIGHT RADIAL
== END 2024-10-22 21:20 | disposition home or self-care (01) ==
LOC: ANHED 20:48
PROVIDERS: Physician Assistant; Emergency Provider Emergency Medicine; PCP Student in an Organized Health Care Education/Training Program
DX: F41.9 Anxiety disorder, unspecified (principal); E78.2 Mixed hyperlipidemia; I10 Essential (primary) hypertension; Z87.891 Personal history of nicotine dependence
CPT/HCPCS: 36415; 36600; 70450; 71046; 80053; 82805; 83880; 84484; 85018; 85025; 85380; 85610; 85730; 93005; 99284; A9270

== ENCOUNTER 2024-11-16 14:59 | Outpatient (CLI) | payer MEDICARE, SELFPAY ==
--- OUTSIDE RECORDS SUMMARY | 2024-11-16 15:56 | XMS_ITS | Clinical Summary ---
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
--- OUTSIDE RECORDS SUMMARY | 2024-11-16 15:56 | XMS_ITS | Clinical Summary ---
Author Organization [facility] Address [address] [facility] [place] [address] Care Team Providers Care Embedded Software Programmer Name Role Phone Patricia Smith MD Primary Care Provider + Source Comments [facility],non-owned Affiliates and Associated Physician Practices is amultiple site organization consisting of ambulatory clinics and hospital sitesin [place], [place], [place] and [place]. This disclosure is being madepursuant to the Care Everywhere program and may not contain all information available regarding this patient. Last updated 17.[facility] Immunizations Immunization Administration Dates Next Due INFLUENZA VACCINE, HIGH-DOSE , QUADR. 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
[2024-11-16 16:43] LABS: Ferritin 41.00 ng/mL (11.1-264)
== END 2024-11-16 15:00 | disposition home or self-care (01) ==
PROVIDERS: PCP Family Medicine; Visit Provider Student in an Organized Health Care Education/Training Program
DX: D50.9 Iron deficiency anemia, unspecified (principal); G25.81 Restless legs syndrome
CPT/HCPCS: 36415; 82728